=== PATIENT | male | born 1930 | race Caucasian/White ===

== ENCOUNTER 2018-03-22 09:54 | Emergency (ER) | payer MEDICARE ==
[~2018-03-22] VITALS: Ht 185.4 cm; Wt 88.9 kg
[~2018-03-22 09:54] MED LIST: ATORVASTATIN CA10 MG PO; CALCIUM PO; FISH OIL PO; MEVACOR20 MG PO; MULTIVITAMIN PO; VITAMIN B-121000 MCG PO; XARELTO PO
[2018-03-22 10:29] LABS: BASOPHILS % 0.4 % (0.0-1.0); EOSINOPHILS # (AUTO) 0.1 (0.0-0.4); EOSINOPHILS % 0.7 % (0.0-6.0); HEMATOCRIT 41.4 % (38.2-49.6); HEMOGLOBIN 14.3 g/dL (14.0-18.0); LYMPHOCYTES # (AUTO) 1.8 (1.0-3.2); LYMPHOCYTES % 24.1 % (18.0-39.1); MEAN CORPUSCULAR HEMOGLOBIN 32.8 pg (28-32); MEAN CORPUSCULAR HGB CONC 34.5 g/dL (31-35); MONOCYTES # (AUTO) 0.6 (0.2-0.8); MONOCYTES % 7.8 % (4.4-11.3); NEUTROPHILS # (AUTO) 4.8 (2.1-6.9); NEUTROPHILS % 66.4 % (38.7-80.0); PLATELET COUNT 242 x10e3/uL (140-360); RED BLOOD COUNT 4.36 x10e6/uL (4.3-5.7); RED CELL DISTRIBUTION WIDTH 13.2 % (11.7-14.4)
[2018-03-22 10:31] LABS: CLARITY,URINE CLOUDY (CLEAR); COLOR,URINE BROWN (YELLOW); LEUKOCYTE ESTERASE ,URINE TRACE (NEGATIVE)
[2018-03-22 10:32] LABS: BILIRUBIN,URINE 1+ (NEGATIVE); KETONES,URINE TRACE (NEGATIVE); NITRITE,URINE POSITIVE (NEGATIVE); PROTEIN,URINE DIPSTICK 3+ (NEGATIVE); URINE UROBILINOGEN 1 mg/dL (0.2 - 1)
[2018-03-22 10:41] LABS: INR 1.16; PROTHROMBIN TIME 13.9 seconds (11.9-14.5)
[2018-03-22 10:42] LABS: PARTIAL THROMBOPLASTIN TIME 30.8 seconds (23.8-35.5)
[2018-03-22 10:47] LABS: BACTERIA,URINE MODERATE /HPF; EPITHELIAL CELLS,URINE RARE /LPF; RBC,URINE >50 /HPF (0-5)
[2018-03-22 10:48] LABS: ALBUMIN 3.6 g/dL (3.5-5.0); ALBUMIN/GLOBULIN RATIO 0.9 (0.8-2.0); CALCIUM 10.2 mg/dL (8.4-10.2); CREATININE, SERUM 1.78 mg/dL (0.72-1.25)
[2018-03-22 13:13] VITALS: BP 153/85
== END 2018-03-22 13:00 | disposition home or self-care (01) ==
LOC: ER 09:54
DX: N30.91 Cystitis, unspecified with hematuria (principal); Z85.51 Personal history of malignant neoplasm of bladder; F17.290 Nicotine dependence, other tobacco product, uncomplicated
CPT/HCPCS: 36415; 80053; 81001; 85025; 85610; 85730; 87086; 87186; 93005; 99284

== ENCOUNTER 2018-03-28 10:27 | Inpatient (IN) | payer MEDICARE ==
[~2018-03-28] VITALS: Ht 185.4 cm; Wt 85.3 kg
--- OUTSIDE RECORDS SUMMARY | 2018-03-28 10:31 | XMS REPORT | Continuity of Care Document ---
Author Author [facility] Organization [facility] Address [address] [place] [address] Phone Unavailable Care Team Providers Care Cork Slabs Sawyer Name Role Phone KULWANT PABON PCP Insurance Providers Guarantor Torey Chen Address [address] [place] [id number] Email PTDECLINED Payer [employer] Medicare Complete Policy Number [id number] Subscriber's Name Torey Chen Tony Relationship 18 Self / Same As Patient Group Number [id number] Effective Date 14 Advance Directives Directive Response Recorded Date/Time Does the patient have an advance directive? No 07/05/15 2:03am If yes, is advance directive on file with [facility]? No 07/05/15 2:03am If not on file with [facility] will patient provide a copy? No 07/05/15 2:03am Do you have a Directive to Physician? No 03/22/18 10:43am Do you have a Medical Power of Chocolate Finisher? No 03/22/18 10:43am Do you have an out of hospital Do Not Resuscitate Order? No 03/22/18 10:43am Do you have any special needs we should be aware of? No 03/22/18 10:43am Do you have a support person here with you today? Yes 03/22/18 10:43am Did patient receive Notice of Privacy Practices? Yes 03/22/18 10:43am Did patient receive patient rights and responsibilities? Yes 03/22/18 10:43am Problems Medical Problem Onset Date Status Back pain, lumbosacral 07/05/2015 Acute Dizziness 07/05/2015 Acute Fall 07/05/2015 Acute Rhabdomyolysis 07/05/2015 Acute Medications Current Home Medications Medication Dose Units Route Directions Days Qty Instructions Start Date Atorvastatin Calcium 10 Mg Tablet 10 Mg Oral Daily 30 Tab Calcium Oral Daily Cyanocobalamin (Vitamin B-12) 1,000 Mcg Tab 1,000 Mcg Oral Daily 30 Tab Fish Oil Oral Daily Multivitamin Oral Daily Xarelto 15 Mg Oral Daily Past Home Medications Medication Directions Ordered Status Lovastatin (Mevacor*) 20 Mg Tablet, 20 Mg Oral Daily Discontinued Social History Social History Problem Response Recorded Date/Time Onset Date Status Hx Psychiatric Problems No 07/05/2015 2:03am Not Applicable Not Applicable Smoking Status Start Date Stop Date Never Smoker Hospital Discharge Instructions No hospital discharge instruction information available. Plan of Care Discharge Date 03/22/18 1:00pm Disposition HOME, SELF-CARE Condition at Discharge Stable Instructions/Education Provided Hematuria - Male Urinary Tract Infection - Men Prescriptions See Medication Section Referrals MAGDA ZARAGOZA MD Order Date: Call for an appointment Address: [address] [place] [id number] Additional Instructions/Education Call for follow up appointment to see Dr. Zaragoza. Take over the counter Motrin or Tylenol medication as needed for comfort. discussed at the bedside, drink fluids, rest and return to the emergency department for any fever, shortness of breath, chest pain, abdominal pain, trouble handling oral secretions or any new concerns. Functional Status No functional status information available. Allergies, Adverse Reactions, Alerts No known allergies. Immunizations No immunization information available. Vital Signs Acute Vital Signs Vital Response Date/Time Pulse Pulse Rate (adult) 61 bpm (60 - 90) 03/22/2018 1:13pm Respiratory Rate 16 bpm (12 - 24) 03/22/2018 1:13pm Blood Pressure 153/85 mm Hg 03/22/2018 1:13pm Height 6 ft 1 in 03/22/2018 10:18am Weight 196 lb 03/22/2018 10:18am Body Mass Index 25.9 kg/m^2 03/22/2018 10:18am Results Laboratory Results Test Name Result Units Flags Reference Collection Date/Time Result Date/ Time Comments White Blood Count 7.27 x10e3/uL 4.8-10.8 03/22/2018 10:03/22/2018 10:30am Red Blood Count 4.36 x10e6/uL 4.3-5.7 03/22/2018 10:03/22/2018 10: 30am Hemoglobin 14.3 g/dL 14.0-18.0 03/22/2018 10:03/22/2018 10:30am Hematocrit 41.4 % 38.2-49.6 03/22/2018 10:03/22/2018 10:30am Mean Corpuscular Volume 95.0 fL 81-99 03/22/2018 10:03/22/2018 10: 30am Mean Corpuscular Hemoglobin 32.8 pg H 28-32 03/22/2018 10:2017 10:30am Mean Corpuscular Hemoglobin Concent 34.5 g/dL 31-35 03/22/2018 10:03/22/2018 10:30am Red Cell Distribution Width 13.2 % 11.7-14.4 03/22/2018 10:2017 10:30am Platelet Count 242 x10e3/uL 140-360 03/22/2018 10:03/22/2018 10: 30am Neutrophils (%) (Auto) 66.4 % 38.7-80.0 03/22/2018 10:03/22/2018 10:30am Lymphocytes (%) (Auto) 24.1 % 18.0-39.1 03/22/2018 10:03/22/2018 10:30am Monocytes (%) (Auto) 7.8 % 4.4-11.3 03/22/2018 10:03/22/2018 10: 30am Eosinophils (%) (Auto) 0.7 % 0.0-6.0 03/22/2018 10:03/22/2018 10: 30am Basophils (%) (Auto) 0.4 % 0.0-1.0 03/22/2018 10:03/22/2018 10: 30am IM GRANULOCYTES % 0.6 % 0.0-1.0 03/22/2018 10:20am 03/22/2018 10:30am Neutrophils # (Auto) 4.8 2.1-6.9 03/22/2018 10:20am 03/22/2018 10: 30am Lymphocytes # (Auto) 1.8 1.0-3.2 03/22/2018 10:20am 03/22/2018 10: 30am Monocytes # (Auto) 0.6 0.2-0.8 03/22/2018 10:20am 03/22/2018 10:30am Eosinophils # (Auto) 0.1 0.0-0.4 03/22/2018 10:20am 03/22/2018 10: 30am Basophils # (Auto) 0.0 0.0-0.1 03/22/2018 10:20am 03/22/2018 10:30am Absolute Immature Granulocyte (auto 0.04 x10e3/uL 0-0.1 03/22/2018 10: 20am 03/22/2018 10:30am Prothrombin Time 13.9 seconds 11.9-14.5 03/22/2018 10:20am 03/22/2018 10:41am Prothromb Time International Ratio 1.16 03/22/2018 10:20am 2017 10:41am Oral Anticoagulant Therapy INR Values: 1. Low Intensity Therapy 1.5 - 2.0 2. Moderate Intensity Therapy 2.0 - 3.0 3. High Intensity Therapy(1) 2.5 - 3.5 4. High Intensity Therapy(2) 3.0 - 4.0 5. Panic Value INR > 5.0 Activated Partial Thromboplast Time 30.8 seconds 23.8-35.5 03/22/2018 10 :20am 03/22/2018 10:43am Urine Color BROWN H YELLOW 03/22/2018 10:20am 03/22/2018 10:32am Urine Clarity CLOUDY H CLEAR 03/22/2018 10:20am 03/22/2018 10:32am Urine Specific Anderson 1.020 1.010-1.025 03/22/2018 10:20am 2017 10:32am Urine pH 7 5 - 7 03/22/2018 10:20am 03/22/2018 10:32am Urine Leukocyte Esterase TRACE H NEGATIVE 03/22/2018 10:202017 10:32am Urine Nitrite POSITIVE H NEGATIVE 03/22/2018 10:03/22/2018 10: 32am Urine Protein 3+ H NEGATIVE 03/22/2018 10:03/22/2018 10:32am Urine Glucose (UA) NEGATIVE NEGATIVE 03/22/2018 10:2003/22/2018 10 :32am Urine Ketones TRACE H NEGATIVE 03/22/2018 10:2003/22/2018 10:32am Urine Urobilinogen 1 mg/dL 0.2 - 1 03/22/2018 10:2003/22/2018 10: 32am Urine Bilirubin 1+ H NEGATIVE 03/22/2018 10:2003/22/2018 10:32am Confirmatory test currently unavailable. False positive results may occur. Urine Blood 4+ H NEGATIVE 03/22/2018 10:03/22/2018 10:32am Urine WBC 6-10 /HPF H 0-5 03/22/2018 10:03/22/2018 10:47am Urine RBC >50 /HPF H 0-5 03/22/2018 10:2003/22/2018 10:47am Urine Bacteria MODERATE /HPF H NONE 03/22/2018 10:2003/22/2018 10: 47am Urine Epithelial Cells RARE /LPF NONE 03/22/2018 10:03/22/2018 10: 47am Sodium Level 137 mmol/L 136-145 03/22/2018 10:2003/22/2018 10:50am Potassium Level 4.0 mmol/L 3.5-5.1 03/22/2018 10:2003/22/2018 10: 50am Chloride Level 103 mmol/L 98-107 03/22/2018 10:2003/22/2018 10:50am Carbon Dioxide Level 25 mmol/L 22-03/22/2018 10:2003/22/2018 10: 50am Anion Gap 13.0 mmol/L 8-03/22/2018 10:2003/22/2018 10:50am Blood Urea Nitrogen 22 mg/dL 7-03/22/2018 10:20am 03/22/2018 10: 50am Creatinine 1.78 mg/dL H 0.72-1.25 03/22/2018 10:20am 03/22/2018 10:50am BUN/Creatinine Ratio 12 6-25 03/22/2018 10:20am 03/22/2018 10:50am Estimat Glomerular Filtration Rate 36 ML/MIN L 60- 03/22/2018 10:20 10:50am Ranges were taken from the National Kidney Disease Education Program and the National Kidney Foundation literature. Reference ranges: 60 or greater: Normal 16-59 (for 3 consecutive months): Chronic kidney disease 15 or less: Kidney failure Glucose Level 77 mg/dL 74-118 03/22/2018 10:20am 03/22/2018 10:50am Calcium Level 10.2 mg/dL # 8.4-10.2 03/22/2018 10:2003/22/2018 10: 50am Total Bilirubin 0.9 mg/dL 0.2-1.2 03/22/2018 10:20am 03/22/2018 10: 50am Aspartate Amino Transf (AST/SGOT) 28 IU/L 5-34 03/22/2018 10:20am 03/22 10:50am Alanine Aminotransferase (ALT/SGPT) 18 IU/L 0-55 03/22/2018 10:20am 10:50am Total Protein 7.5 g/dL 6.5-8.1 03/22/2018 10:2003/22/2018 10:50am Albumin 3.6 g/dL 3.5-5.0 03/22/2018 10:20am 03/22/2018 10:50am Globulin 3.9 g/dL H 2.3-3.5 03/22/2018 10:20am 03/22/2018 10:50am Albumin/Globulin Ratio 0.9 0.8-2.0 03/22/2018 10:20am 03/22/2018 10: 50am Alkaline Phosphatase 38 IU/L L 40-150 03/22/2018 10:20am 03/22/2018 10: 50am Procedures No procedure information available. Encounters Encounter Location Arrival/Admit Date Discharge/Depart Date Attending Provider Departed Emergency Room [facility] 03/22/18 9:54am 1:00pm DEANNA MONTES DE OCA MD
[2018-03-28 11:39] LABS: BASOPHILS % 0.3 % (0.0-1.0); EOSINOPHILS % 0.1 % (0.0-6.0); HEMATOCRIT 42.1 % (38.2-49.6); HEMOGLOBIN 14.7 g/dL (14.0-18.0); LYMPHOCYTES # (AUTO) 1.1 (1.0-3.2); LYMPHOCYTES % 12.9 % (18.0-39.1); MEAN CORPUSCULAR HGB CONC 34.9 g/dL (31-35); MEAN CORPUSCULAR VOLUME 94.6 fL (81-99); MONOCYTES # (AUTO) 0.5 (0.2-0.8); MONOCYTES % 5.1 % (4.4-11.3); NEUTROPHILS # (AUTO) 7.1 (2.1-6.9); NEUTROPHILS % 80.8 % (38.7-80.0); PLATELET COUNT 308 x10e3/uL (140-360); RED BLOOD COUNT 4.45 x10e6/uL (4.3-5.7); RED CELL DISTRIBUTION WIDTH 12.9 % (11.7-14.4)
[2018-03-28 11:44] LABS: INR 1.17; PARTIAL THROMBOPLASTIN TIME 27.9 seconds (23.8-35.5)
[2018-03-28 11:53] LABS: ALBUMIN 3.6 g/dL (3.5-5.0); ANION GAP 13.7 mmol/L (8-16); CALCIUM 10.3 mg/dL (8.4-10.2); CREATININE, SERUM 1.94 mg/dL (0.72-1.25); POTASSIUM 4.7 mmol/L (3.5-5.1)
[2018-03-28 12:00] LABS: B-TYPE NATRIURETIC PEPTIDE2 123.7 pg/mL (0-100)
[2018-03-28] MEDS ORDERED: MORPHINE SULFATE 2 MG/ML SYR IV STA (12:48)
[2018-03-28 13:12] LABS: BILIRUBIN,URINE 2+ (NEGATIVE); CLARITY,URINE CLOUDY (CLEAR); COLOR,URINE AMBER (YELLOW); KETONES,URINE NEGATIVE (NEGATIVE); LEUKOCYTE ESTERASE ,URINE TRACE (NEGATIVE); NITRITE,URINE POSITIVE (NEGATIVE); PROTEIN,URINE DIPSTICK 3+ (NEGATIVE); URINE UROBILINOGEN 0.2 mg/dL (0.2 - 1)
[2018-03-28 13:25] LABS: RBC,URINE >50 /HPF (0-5)
[2018-03-28 13:26] LABS: AMORPHOUS SEDIMENT,URINE RARE (FEW); BACTERIA,URINE MODERATE /HPF; EPITHELIAL CELLS,URINE RARE /LPF; MUCUS,URINE FEW (RARE)
--- NOTE | 2018-03-28 13:32 | Diagnostic Imaging Report ---
PROCEDURE: A single AP view of the chest. COMPARISON: Patients [facility], , CHEST SINGLE (PORTABLE), 07/08/2015, 23:31. INDICATIONS: BACK PAIN, NAUSEA FINDINGS: Lines/tubes: None. Lungs: The lungs are well inflated and clear. There is no evidence of pneumonia or pulmonary edema. Pleura: There is no pleural effusion or pneumothorax. Heart and mediastinum: The heart and the mediastinum are unremarkable. Pulmonary vasculature is normal. Bones: No acute bony abnormality. IMPRESSION: 1. No acute cardiopulmonary abnormalities. Tomasz Taveras M.D. Dictated by: Tomasz Taveras M.D. on 03/28/2018 at 13:35 Electronically approved by: Tomasz Taveras M.D. on 03/28/2018 at 13:35
--- NOTE | 2018-03-28 13:35 | Diagnostic Imaging Report ---
PROCEDURE:L-SPINE COMPLETE COMPARISON:CT, CT LUMBAR SPINE WO, 07/04/2015, 23:10. INDICATIONS:BACK PAIN, NAUSEA FINDINGS: 5 nonrib-bearing lumbar vertebrae. Multilevel degenerative disc changes in the lumbosacral spine, with presence of large bridging osteophytes predominantly at T12-L1, L1-L2, L2-L3, and L3-L4. Facet hypertrophy. L4-L5. No significant spondylolisthesis. Vertebral body heights are preserved. Bilateral oblique views show no spondylolysis. Nonobstructive gas pattern. Degenerative changes in bilateral sacroiliac joints. CONCLUSION: No acute abnormalities. Multilevel degenerative disc changes with facet hypertrophy. L4-L5 Tomasz Taveras M.D. Dictated by: Tomasz Taveras M.D. on 03/28/2018 at 13:38 Electronically approved by: Tomasz Taveras M.D. on 03/28/2018 at 13:38
[2018-03-28] MEDS ORDERED: CEFTRIAXONE SOD 1 GM VIAL IV SCH ×2 (14:30→15:00)
[2018-03-28] MEDS ORDERED: ONDANSETRON HCL INJ 2 MG/ML VIAL IV PRN (15:00)
[2018-03-28] MEDS ORDERED: MORPHINE SULFATE 2 MG/ML SYR IV PRN (15:00)
--- OUTSIDE RECORDS SUMMARY | 2018-03-28 15:10 | XMS REPORT ---
Author Author [facility] Address Unknown Phone Unavailable Care Team Providers Care Alternative Medicine Practitioner Name Role Phone ALYSSIA HANCOCK Unavailable Unavailable Problems This patient has no known problems. Allergies, Adverse Reactions, Alerts This patient has no known allergies or adverse reactions. Medications This patient has no known medications. Results Test Description Test Time Test Comments Text Results Atomic Results Result Comments CHEST SINGLE (NOT PORTABLE) [place] [address] Patient Name: BETSY CHEN MR #: [id number] : 1930 Age/Sex: 87/M Req #: [id number] Adm Physician: Ordered by: ALYSSIA HANCOCK MD Report #: [id number] Location: ER Room/Bed: Procedure: DX/CHEST SINGLE (NOT PORTABLE) Exam Date: 03/28/18 Exam Time: 1100 REPORT STATUS: Signed PROCEDURE: A single AP view of the chest. COMPARISON: [facility], , CHEST SINGLE (PORTABLE), 07/08/2015, 23:31. INDICATIONS: BACK PAIN, NAUSEA FINDINGS: Lines/tubes: None. Lungs: The lungs are well inflated and clear. There is no evidence of pneumonia or pulmonary edema. Pleura: There is no pleural effusion or pneumothorax. Heart and mediastinum: The heart and the mediastinum are unremarkable. Pulmonary vasculature is normal. Bones: No acute bony abnormality. IMPRESSION : 1. No acute cardiopulmonary abnormalities. Bailey Taveras M.D. Dictated by: Bailey Taveras M.D. on 03/28/2018 at 13:35 Electronically approved by: Bailey Taveras M.D. on 03/28/2018 at 13:35 Dictated By: BAILEY TAVERAS MD 1335 Transcribed By: TAYLOR on 03/28/18 1335 COPY TO: ALYSSIA HANCOCK MD LUMBAR, COMPLETE MIN 4VW [place] [address] Patient Name: BETSY CHEN MR #: [id number] : 1930 Age/Sex: 87/M Req #: [id number] Adm Physician: Ordered by: ALYSSIA HANCOCK MD Report #: [id number] Location: ER Room/Bed: Procedure: [id number] DX/SP LUMBAR, COMPLETE MIN 4VW Exam Date: 03/28/18 Exam Time: 1100 REPORT STATUS: Signed PROCEDURE: L-SPINE COMPLETE COMPARISON: CT, CT LUMBAR SPINE WO, 07/04/2015, 23: 10. INDICATIONS: BACK PAIN, NAUSEA FINDINGS: 5 nonrib- bearing lumbar vertebrae. Multilevel degenerative disc changes in the lumbosacral spine, with presence of large bridging osteophytes predominantly at T12-L1, L1-L2, L2-L3, and L3-L4. Facet hypertrophy. L4-L5. No significant spondylolisthesis. Vertebral body heights are preserved. Bilateral oblique views show no spondylolysis. Nonobstructive gas pattern. Degenerative changes in bilateral sacroiliac joints. CONCLUSION: No acute abnormalities. Multilevel degenerative disc changes with facet hypertrophy. L4-L5 Bailey Taveras M.D. Dictated by: Bailey Taveras M.D. on 03/28/2018 at 13:38 Electronically approved by: Bailey Taveras M.D. on 03/28/2018 at 13:38 Dictated By: BAILEY TAVERAS MD 1338 Transcribed By: TAYLOR on 03/28/18 1338 COPY TO: ALYSSIA HANCOCK MD
[2018-03-28] MEDS: SODIUM CHLORIDE 0.9% 1000ML 1,000 ML IV SCH (16:17)
[2018-03-28] MEDS ORDERED: ONDANSETRON HCL INJ 2 MG/ML VIAL ONE (18:25)
[2018-03-28] MEDS ORDERED: DEXAMETHASONE SOD PHOS INJ 4 MG/ML VIAL ONE (18:25)
[2018-03-28] MEDS ORDERED: DESFLURANE 240 ML BTL INH ONE (18:25)
[2018-03-28] MEDS ORDERED: PROPOFOL IV EMULSION 10 MG/ML 20 ML VIAL ONE (18:25)
[2018-03-28] MEDS ORDERED: LIDOCAINE HCL 2% LOCAL INJ 5 ML SDV VIAL INJ ONE (18:25)
[2018-03-28 18:52] VITALS: BP 144/65
[2018-03-28 19:30] VITALS: BP 146/67
[2018-03-28 20:00] VITALS: BP 146/67
[2018-03-29] VITALS (9 sets, daily range): BP systolic 107–155; BP diastolic 61–79
[2018-03-29] MEDS: SODIUM CHLORIDE 0.9% 1000ML 1,000 ML IV SCH ×2 (04:54→17:25)
[2018-03-29] MEDS: CEFTRIAXONE SOD 1 GM VIAL IV SCH (09:31)
--- NOTE | 2018-03-29 21:23 | Diagnostic Imaging Report ---
EXAM: ABDOMEN-1VIEW (KUB) DATE: 03/29/2018 5:42 PM Time stamp on exam: 1918 hours INDICATION: Abdominal distention COMPARISON: None FINDINGS: LINES/TUBES: None BOWEL PATTERN: No evidence for obstruction. Mild distention of the transverse colon. SOFT TISSUES: Multiple pelvic phleboliths are present. LUNG BASES: Bibasilar atelectasis. BONES: No acute findings. Degenerative changes of the visualized thoracolumbar spine and hip joints bilaterally. IMPRESSION: 1. Nonobstructive bowel gas pattern. 2. Bibasilar atelectasis Signed by: Dr. Alexis Boss M.D. on 03/29/2018 9:20 PM
[2018-03-30] VITALS (7 sets, daily range): BP systolic 105–132; BP diastolic 50–79
[2018-03-30 05:47] LABS: HEMATOCRIT 34.7 % (38.2-49.6); MEAN CORPUSCULAR HEMOGLOBIN 32.9 pg (28-32); MEAN CORPUSCULAR VOLUME 95.1 fL (81-99); RED BLOOD COUNT 3.65 x10e6/uL (4.3-5.7)
[2018-03-30 05:48] LABS: BASOPHILS % 0.2 % (0.0-1.0); EOSINOPHILS % 0.3 % (0.0-6.0); LYMPHOCYTES # (AUTO) 1.6 (1.0-3.2); LYMPHOCYTES % 14.3 % (18.0-39.1); MEAN CORPUSCULAR HGB CONC 34.6 g/dL (31-35); MONOCYTES # (AUTO) 0.7 (0.2-0.8); MONOCYTES % 6.3 % (4.4-11.3); NEUTROPHILS # (AUTO) 8.7 (2.1-6.9); NEUTROPHILS % 78.5 % (38.7-80.0); PLATELET COUNT 221 x10e3/uL (140-360); RED CELL DISTRIBUTION WIDTH 12.9 % (11.7-14.4)
[2018-03-30 06:28] LABS: ANION GAP 11.8 mmol/L (8-16); POTASSIUM 3.8 mmol/L (3.5-5.1)
[2018-03-30 06:29] LABS: CALCIUM 8.7 mg/dL (8.4-10.2); CREATININE, SERUM 2.03 mg/dL (0.72-1.25)
[2018-03-30] MEDS: SODIUM CHLORIDE 0.9% 1000ML 1,000 ML IV SCH ×2 (07:30→21:35)
[2018-03-30] MEDS: CYANOCOBALAMIN 1,000 MCG TAB PO SCH (09:38)
[2018-03-30] MEDS: CEFTRIAXONE SOD 1 GM VIAL IV SCH (09:38)
[2018-03-30 14:31] LABS: CREATININE,URINE RANDOM 193.18 mg/dL (63-166)
--- NOTE | 2018-03-30 14:52 | Consultation ---
DATE OF CONSULTATION: March 30, 2018 RENAL CONSULTATION HISTORY OF PRESENT ILLNESS: This is an 87-year-old gentleman who lives with his son, recently . Does not smoke or drink. Denies taking any pain medication. Came in because he was not feeling well. He was disoriented as well, he claims. Here he was found to have elevated white count of 11 with a hemoglobin of 12, had acute kidney injury with a serum creatinine of 2, potassium 3.8, bicarbonate 23. His liver function enzymes were normal. Calcium was elevated yesterday 10.3. BNP 123. Total protein 7.1. Globulin 3.5. Lipase 5.4. Had an x-ray of the abdomen and chest. Please see official reports. Urine culture is pending. He is currently awake, alert, oriented times 3, in no apparent distress. Denies any nausea, vomiting or shortness of breath. CURRENT MEDICATIONS: Normal saline 75 mL an hour. Atorvastatin 10 mg at bedtime. Ceftriaxone 1 gram IV daily. Ondansetron p.r.n. Morphine p.r.n. SOCIAL HISTORY: Patient does not smoke or drink. FAMILY HISTORY: Significant for hypertension. Urinalysis shows dipstick positive proteins and more than 50 RBC, 6-10 WBC. PHYSICAL EXAMINATION: GENERAL: Awake, alert, oriented times 3, lying supine in bed. In no apparent distress. VITALS: Blood pressure of 130/60, pulse rate 80. HEAD AND NECK: Cornea clear. Oral mucosa dry. Neck veins flat. LUNGS: Relatively clear. HEART: S1 and S2 audible. ABDOMEN: Otherwise soft, nontender. LOWER EXTREMITY EXAMINATION: Shows no edema. Urinalysis shows quite dark-colored urine but he is non-oliguric, though. IMPRESSION: Acute tubular necrosis. Has significant microscopic hematuria. Must rule out vasculitis, rapidly progressive glomerulonephritis . White count elevated, culture pending. Etiology of altered mental status unclear, currently stable. Appears relatively dehydrated, agree with IV fluids. Serology is ordered. Continue with IV fluids. Kidney ultrasound ordered. Please see orders. Job#: [id number] HANSA
--- NOTE | 2018-03-30 16:07 | Diagnostic Imaging Report ---
PROCEDURE:US RETROPERITONEAL ( KIDNEY ). COMPARISON:Patients [facility], MR, MRI SPINE LUMBAR WO, 07/05/2015, 13:21. INDICATIONS:ATN TECHNIQUE: Go-scale and color sonographic images of the bilateral kidneys and bladder where obtained in transverse and longitudinal planes. FINDINGS: RIGHT KIDNEY: 13.0 cm, cortex 1.1 cm Cysts: None Solid masses: None Stones: None Hydronephrosis: Mild hydronephrosis Echogenicity: Normal LEFT KIDNEY: 11.5 cm, cortex 1.7 cm Cysts: 1.5 x 1.2 x 1.2 cm cystic, anechoic lesion in the mid to inferior aspect. Solid masses: 4.4 x 2.6 x 3.6 cm hypoechoic, irregularly shaped area in the mid aspect Stones: None Hydronephrosis: None Echogenicity: Increased Bladder: Decompressed, with Banegas catheter in place Prostate: Not visualized. CONCLUSION: 1. Increased left renal cortical echogenicity, likely representing medical renal disease. 2. Mild right hydronephrosis. No stones are visualized. 3. Irregularly shaped 4.4 cm hypoechoic area in the mid aspect of the left kidney. This may represent focal area of marked scarring (as noted on prior MRI lumbar spine 07/05/2015), however, a focal mass is also considered. Tomasz Taveras M.D. Dictated by: Tomasz Taveras M.D. on 03/30/2018 at 16:10 Electronically approved by: Tomasz Taveras M.D. on 03/30/2018 at 16:10
[2018-03-30] MEDS: ATORVASTATIN 10 MG TAB PO SCH (21:36)
[2018-03-31] VITALS (7 sets, daily range): BP systolic 126–171; BP diastolic 64–91
[2018-03-31 05:57] LABS: ALBUMIN 2.4 g/dL (3.5-5.0); ALBUMIN/GLOBULIN RATIO 0.8 (0.8-2.0); ANION GAP 10.8 mmol/L (8-16); CALCIUM 8.5 mg/dL (8.4-10.2); CREATININE, SERUM 1.8 mg/dL (0.72-1.25); POTASSIUM 3.8 mmol/L (3.5-5.1)
[2018-03-31 06:15] LABS: HIV 1&2 AB SCREEN NON-REACTIVE (NONREACTIVE)
[2018-03-31] MEDS: CYANOCOBALAMIN 1,000 MCG TAB PO SCH (09:00)
[2018-03-31] MEDS: CEFTRIAXONE SOD 1 GM VIAL IV SCH (09:25)
[2018-03-31] MEDS: SODIUM CHLORIDE 0.9% 1000ML 1,000 ML IV SCH (11:49)
[2018-03-31] MEDS ORDERED: BELLADONNA/OPIUM 30 MG SUPP RC ONE (15:07)
[2018-03-31] MEDS ORDERED: IOPAMIDOL 610MG/1ML 300 MG/ML VIAL IV ONE (15:07)
[2018-03-31] MEDS ORDERED: FENTANYL CITRATE/PF 100MCG/2 ML INJ ONE (15:16)
[2018-03-31] MEDS ORDERED: METHYLENE BLUE 1% INJ 10 ML VIAL INJ ONE (17:18)
[2018-03-31] MEDS ORDERED: BELLADONNA/OPIUM 60 MG SUPP PR PRN (17:45)
[2018-03-31] MEDS ORDERED: BELLADONNA/OPIUM 30 MG SUPP RC PRN (18:00)
--- NOTE | 2018-03-31 20:27 | Diagnostic Imaging Report ---
EXAM: CT Abdomen and Pelvis WITHOUT contrast INDICATION: COMPARISON: None. TECHNIQUE: Abdomen and Pelvis was scanned utilizing a multidetector helical scanner without the use of IV contrast. Coronal and sagittal reformations were obtained. IV CONTRAST: None COMPLICATIONS: None RADIATION DOSE: Total DLP: 615 mGy*cm Estimated effective dose: (DLP x 0.015 x size factor) mSv CTDIvol has been reviewed. It is below the limits set by the Radiation Protocol Committee (RPC). FINDINGS: Abdomen: Lung Bases: Small left and moderate right pleural effusions with asymmetric to the right bibasilar opacities, incompletely evaluated given motion artifact and lack of IV contrast. Solid Organs: 17 mm hypodensity anteriorly in the left hepatic lobe, nonspecific. There is an 8 mm stone in the distal common duct, axial image 31. Probable layering sludge or gallstones present in the gallbladder. Adrenals, spleen unremarkable. Common duct dilated at head of pancreas 13 mm. Moderate right hydronephrosis and perinephric stranding. 22 mm exophytic lesion right kidney, incompletely evaluated given lack of IV contrast. Right ureter is dilated with surrounding stranding. No distinct calcified stone. Upper GI Tract: Decompressed stomach limits evaluation. Duodenal diverticulum. No small bowel obstructive changes. Vascularity: Mild aortic vascular calcifications with no aneurysm. Lymph Nodes: Evaluation limited given lack of IV contrast. No definite aortocaval or mesenteric adenopathy. Other: None. Pelvis: Bladder: Bladder decompressed with catheter. Wall thickening and surrounding inflammation. Other: Transverse diameter prostate 57 mm. 41 x 28 mm rounded lesion with peripheral calcifications right pelvis. 15 x 11 mm lymph node left pelvic sidewall. Colon: Moderate proximal stool. Bones: Degenerative changes spine. Degenerative changes SI joints and hips. No definite metastatic disease. IMPRESSION: 1. Decompressed urinary bladder limits evaluation. Wall thickening corresponding with provided history of malignancy. 41 x 28 mm right and 15 x 11 mm left pelvic lymph nodes, presumed metastatic. 2. Moderate right hydroureter and hydronephrosis presumably due to malignant obstruction of distal right ureter. Superimposed pyelonephritis not excluded. 3. 17 mm lesion left hepatic lobe, incompletely evaluated. Metastatic disease not excluded. 4. Choledocholithiasis with probable biliary sludge/cholelithiasis. Clinical and laboratory correlation for biliary obstruction recommended. 5. Small left and moderate right effusions with asymmetric to the right basilar airspace opacities, incompletely evaluated without IV contrast representing atelectasis and/or pneumonia. 6. Enlarged prostate. Clinical and laboratory correlation recommended. Signed by: Dr. Elías Buckner MD on 03/31/2018 8:23 PM
[2018-03-31] MEDS: ATORVASTATIN 10 MG TAB PO SCH (21:00)
[2018-04-01] VITALS (16 sets, daily range): BP systolic 129–178; BP diastolic 64–130
[2018-04-01 06:03] LABS: ALBUMIN 2.3 g/dL (3.5-5.0); ALBUMIN/GLOBULIN RATIO 0.7 (0.8-2.0); ANION GAP 13.6 mmol/L (8-16); CALCIUM 8.4 mg/dL (8.4-10.2); CREATININE, SERUM 1.58 mg/dL (0.72-1.25)
[2018-04-01 06:08] LABS: POTASSIUM 4.6 mmol/L (3.5-5.1)
[2018-04-01] MEDS: SODIUM CHLORIDE 0.9% 1000ML 1,000 ML IV SCH (06:25)
[2018-04-01] MEDS: CYANOCOBALAMIN 1,000 MCG TAB PO SCH (09:00)
[2018-04-01] MEDS: CEFTRIAXONE SOD 1 GM VIAL IV SCH (09:40)
[2018-04-01] MEDS ORDERED: LIDOCAINE HCL 2% LOCAL 20 ML VIAL ONE (11:24)
[2018-04-01] MEDS ORDERED: SODIUM CHLORIDE 0.9% 500ML 1,000 ML ONE (11:25)
[2018-04-01] MEDS ORDERED: MIDAZOLAM HCL 2 MG/2 ML VIAL ONE (11:28)
[2018-04-01] MEDS ORDERED: FENTANYL CITRATE/PF 100MCG/2 ML INJ ONE (11:28)
[2018-04-01] MEDS: AMLODIPINE BESYLATE 5 MG TAB PO SCH (16:06)
[2018-04-01] MEDS: ATORVASTATIN 10 MG TAB PO SCH (20:47)
[2018-04-02 00:46] VITALS: BP 113/62
[2018-04-02 06:04] VITALS: BP 137/77
[2018-04-02 06:16] LABS: ANION GAP 10.8 mmol/L (8-16); BLOOD UREA NITROGEN 23 mg/dL (7-26); BUN/CREATININE RATIO 21 (6-25); CALCIUM 8.6 mg/dL (8.4-10.2); CARBON DIOXIDE 24 mmol/L (22-29); CHLORIDE 104 mmol/L (98-107); EST GLOMERULAR FILTRATION RATE > 60 ML/MIN (60-); GLUCOSE 103 mg/dL (74-118); POTASSIUM 3.8 mmol/L (3.5-5.1); SODIUM 135 mmol/L (136-145)
[2018-04-02 08:00] VITALS: BP 152/88
[2018-04-02] MEDS: CYANOCOBALAMIN 1,000 MCG TAB PO SCH (08:15)
[2018-04-02] MEDS: CEFTRIAXONE SOD 1 GM VIAL IV SCH (08:15)
[2018-04-02] MEDS: SODIUM BICARBONATE 650 MG TAB PO SCH (08:15)
[2018-04-02] MEDS: AMLODIPINE BESYLATE 5 MG TAB PO SCH (08:15)
[2018-04-02 08:30] VITALS: BP 152/88
[2018-04-02 12:00] VITALS: BP 151/88
[2018-04-02] MEDS: SODIUM CHLORIDE 0.9% 1000ML 1,000 ML IV SCH (12:15)
[2018-04-02 21:29] VITALS: BP 166/77
[2018-04-02] MEDS: ATORVASTATIN 10 MG TAB PO SCH (21:37)
[2018-04-03 01:09] VITALS: BP 102/63
[2018-04-03 04:00] VITALS: BP 146/64
[2018-04-03 06:01] LABS: ANION GAP 12.6 mmol/L (8-16); BLOOD UREA NITROGEN 20 mg/dL (7-26); BUN/CREATININE RATIO 21 (6-25); CALCIUM 8.7 mg/dL (8.4-10.2); CARBON DIOXIDE 24 mmol/L (22-29); CHLORIDE 104 mmol/L (98-107); CREATININE, SERUM 0.94 mg/dL (0.72-1.25); EST GLOMERULAR FILTRATION RATE > 60 ML/MIN (60-); GLUCOSE 102 mg/dL (74-118); POTASSIUM 3.6 mmol/L (3.5-5.1); SODIUM 137 mmol/L (136-145)
[2018-04-03 07:56] VITALS: BP 142/79
[2018-04-03 09:00] VITALS: BP 142/79
[2018-04-03] MEDS: CEFTRIAXONE SOD 1 GM VIAL IV SCH (09:13)
[2018-04-03] MEDS: CYANOCOBALAMIN 1,000 MCG TAB PO SCH (09:13)
[2018-04-03] MEDS: SODIUM BICARBONATE 650 MG TAB PO SCH (09:13)
[2018-04-03] MEDS: AMLODIPINE BESYLATE 5 MG TAB PO SCH (09:13)
[2018-04-03 11:47] VITALS: BP 141/79
[2018-04-03] MEDS: SODIUM CHLORIDE 0.9% 1000ML 1,000 ML IV SCH (12:47)
[2018-04-03 16:01] VITALS: BP 163/85
[2018-05-08] MEDS ORDERED: FENOFIBRATE145 MG (07:12)
[2018-05-08] MEDS ORDERED: SODIUM BICARBO650 MG PO (07:12)
[2018-05-08] MEDS ORDERED: VITAMIN D400 UNIT PO (07:12)
[2018-05-11] MEDS ORDERED: VIT D PO (09:24)
--- NOTE | 2018-05-11 21:35 | Discharge Summary ---
CHIEF COMPLAINT: Generalized weakness and fatigue. FINAL DIAGNOSES 1. Bladder cancer. 2. Hematuria. 3. Status post ureteral stent. PROCEDURE: Cystoscopic retrograde pyelograms, transurethral resection of bladder tumors. Fluoroscopy guided right nephroureteral stent placement. [facility] 87-[facility] male with known history of atrial fib, bladder CA, brought to the ER with a 1-to-2-day history of generalized weakness, fatigue. Was recently diagnosed with UTI and has been on Cipro p.o. with no improvement. Has had fever and chills. No other complaints. Patient was reviewed and evaluated in the emergency room. Data was evaluated. Banegas was placed. Admission was made for treatment regarding findings of hematuria. UTI, weakness, CA of bladder, atrial fib. Will be undergoing urine studies. Begin IV antibiotics. Request urology followup. With admission, regarding the patient's kidney function findings, patient was being reviewed by Dr. Barragan, nephrology, and his impression was acute tubular necrosis. Significant microscopic hematuria. Must rule out vasculitis. Recommending progressive glomerulonephritis. Appears relatively dehydrated. Agree with rehydration. The patient was then being seen by Dr. Zaragoza regarding issues of recurrent bladder CA. With his evaluation, his impression was recurrent bladder CA, UTI, chronic renal insufficiency, hematuria. Patient on med surg floor, cardiac diet. Was on IV fluids. Was being given morphine sulfate for pain control. Started on 1 g of ceftriaxone daily IV. Laboratory studies were showing stable electrolytes. Kidney functions BUN 32 creatinine 1.94, glucose 107. CBC stable. Banegas is functioning. Still has evidence of hematuria. Patient's calcium has been running low elevation. However, as the patient was progressing, the hypercalcemia was improving. However, the hematuria was maintaining presence. Patient is set up for procedure per Dr. Zaragoza. His antibiotics were continuing. He is now being placed on B12 replenishment. He was beginning to receive small dosages of medications for his blood pressure management. He is slowly recovering from his surgical procedure. Arrangements were being made for discharge planning to SNF facility. Noted that he was feeling progressively better. He was cleared for discharge by urology. He was cleared for transfer, taken to [facility] 04[facility]2018, in stable condition. EKG shows atrial fib with a slow ventricular response. Right bundle branch block left anterior fascicular block, bifascicular block, left ventricular hypertrophy with QRS widening. Surgical procedures were carried out by Dr. Zaragoza. Bladder stones were removed. Bladder tumor was removed in sections. The 2nd procedure by interventional radiology, where a nephroureteral stent was placed on the right. Patient was then [facility] to [facility] on 04/03/[address] [facility] will continue on full code status. Patient remains incontinent with bladder. Does have a Banegas catheter on board. Patient has his own walker. I will be monitoring his recovery at that location. Will be evaluating his status routinely. Staff will be contacting me as needed. Dictated By: ROME Man Job#: [id number]
--- NOTE | 2018-05-17 10:02 | Diagnostic Imaging Report ---
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 Urologist was unable to find the ureteral orifice at cystoscopy. SEDATION: 1 mg of Versed and 50 mcg of Fentanyl. Patient was continuously monitored by the dedicated nurse. FINDINGS:Utilizing fluoroscopy guidance, puncture of the lower pole infundibula was accomplished with a 21 gauge skinny needle. A 0.018 inch wire was then advanced followed by an Accustick system. A 0.035 inch Glidewire was then advanced into the ureter. A 5 Ukrainian Kumpe catheter was utilized and probing of the distal ureter was accomplished. The wire was able to be placed into the bladder. A 0.035 inch Amplatz superstiff wire was then placed into the bladder. Serial dilatation was accomplished. An 8.5 Ukrainian 24 cm long nephroureteral stent was then placed. Patient tolerated the procedure well. Fluoroscopy time: 7.1 minutes. Total dose: 3510.1 cGycm2 CONCLUSION:Successful placement of a right nephroureteral stent. Kennedy Adkins D.O. Dictated by: Kennedy Adkins D.O. on 04/04/2018 at 8:21 Electronically approved by: Kennedy Adkins D.O. on 04/04/2018 at 8:21
--- NOTE | 2018-06-05 03:04 | Operative Report ---
DATE OF PROCEDURE: March 31, 2018 PREOPERATIVE DIAGNOSES: 1. Bladder cancer. 2. Gross hematuria. POSTOPERATIVE DIAGNOSES: 1. Gross hematuria. 2. Bladder stone. 3. Bladder cancer of the trigone and posterior bladder wall. OPERATIONS PERFORMED: 1. Cystourethroscopy with left ureteral catheterization and retrograde ureteropyelography (separate procedure performed for the hematuria). 2. Interpretation of retrograde ureteropyelography. 3. Supervision of fluoroscopy, no radiologist present. 4. Cystourethroscopy with cystolitholapaxy (separate procedure performed to get rid of the patient's bladder stone). 5. Cystourethroscopy with transurethral resection of large over 5 cm bladder cancer. ANESTHESIA: General. COMPLICATIONS: None. CLINICAL SUMMARY: Torey Chowdary is an 87-year-old man with bladder cancer. The patient failed to followup for approximate 1-1/2 years, and upon followup was found to have recurrence of bladder cancer. The patient also had gross hematuria, presented to the emergency room, was subsequently admitted. He is brought for evaluation and management of his bladder cancer. He is aware of the risks of bleeding, infection, injury to adjacent structures, need for additional procedures, and elected to proceed. OPERATIVE PROCEDURE IN DETAIL: Informed consent was verified. Torey Chowdary was properly identified, taken to the operating room, and placed on the cystoscopy table in supine position. Anesthesia was uneventfully begun. The patient was then carefully and gently repositioned in the dorsal lithotomy position with all pressure points well padded. His genitalia were prepared and draped in usual sterile fashion. The 22.5-Occitan cystoscope sheath with the visual obturator in place was atraumatically inserted into the patient's urethra. It was guided down the unremarkable urethra, through the normal sphincteric region, through the prostate bed, which was significant for BPH and into the patient's bladder where we identified a bladder stone. We also identified bladder tumor consistent with cancer on the right side of the trigone as well as in posterior bladder wall. The left ureteral orifice was visible. An 8-Occitan catheter was used to cannulate the left ureter, and retrograde ureteral pyelograms were performed. Interpretation of retrograde ureteropyelography: Contrast was instilled in retrograde fashion on the left hand side. There were no tumors, no stones, and no diverticula. J-hooking was noted. We identified the bladder stone. We utilized the graspers to crush the stone and then we extracted the stone fragments. The resectoscope was introduced. We then proceeded with performing transurethral resection of bladder cancer. We resected the bladder cancer of the trigone. We were unable to find the right ureteral orifice. We could not see anything excreting from that region. We also resected the posterior bladder wall tumor. We avoided injury to the left ureteral orifice. Not all cancer was removed despite significant resection of well over 5 cm diameter of tumor. Hemostasis was achieved with pinpoint electrocautery. The cystoscope was withdrawn. Banegas catheter was placed. The patient was then uneventfully reversed from anesthesia and taken to recovery room in stable condition. There were no complications to the procedure. He tolerated the procedure well. Plans will be to proceed with placement of a right percutaneous nephrostomy. Following this, we will send the patient to hopefully rehabilitate at a longterm facility in preparation for we hope to be the next step of management of this what we believe to be this invasive cancer. That next step in management will most likely be a radical cystectomy. Job#: [id number]
== END 2018-04-03 18:09 | DRG 653 ==
LOC: ER 10:27 → ERHOLD 15:08 → MED/SURG3 18:16 → ACU 04-03 11:44
PROC: 0T778ZZ Dilation of Left Ureter, Via Natural or Artificial Opening Endoscopic (ICD-10-PCS; 2018-03-31)
PROC: 0TCB8ZZ Extirpation of Matter from Bladder, Via Natural or Artificial Opening Endoscopic (ICD-10-PCS; 2018-03-31)
PROC: BT141ZZ Fluoroscopy of Kidneys, Ureters and Bladder using Low Osmolar Contrast (ICD-10-PCS; 2018-03-31)
PROC: 0TBB8ZX Excision of Bladder, Via Natural or Artificial Opening Endoscopic, Diagnostic (ICD-10-PCS; 2018-03-31 15:30)
PROC: 0T7 Urinary System, Dilation (ICD-10-PCS; principal; 2018-04-01)
DX: C67.8 Malignant neoplasm of overlapping sites of bladder (principal); N17.0 Acute kidney failure with tubular necrosis; N39.0 Urinary tract infection, site not specified; C79.89 Secondary malignant neoplasm of other specified sites; E87.1 Hypo-osmolality and hyponatremia; I12.9 Hypertensive chronic kidney disease with stage 1 through stage 4 chronic kidney disease, or unspecified chronic kidney disease; N18.3 Chronic kidney disease, stage 3 (moderate); E86.0 Dehydration; I48.0 Paroxysmal atrial fibrillation; Z79.01 Long term (current) use of anticoagulants; K21.9 Gastro-esophageal reflux disease without esophagitis; N40.0 Benign prostatic hyperplasia without lower urinary tract symptoms; N21.0 Calculus in bladder
CPT/HCPCS: 36415; 50430; 50432; 51700; 71045; 72110; 74018; 74176; 74420; 74470; 76770; 77002; 80048; 80053; 81001; 82550; 82553; 82570; 83516; 83605; 83690; 83880; 84156; 84165; 84484; 84550; 85025; 85597; 85610; 85613; 85730; 86021; 86039; 86160; 86225; 86235; 86255; 86256; 86335; 86376; 86431; 86803; 87086; 87390; 88300; 88305; 93005; 96361; 96375; 96376; 99284; G0433; G0435; J0696; J1100; J2001; J2250; J2270; J2405; J7030; J7040

== ENCOUNTER → 2018-05-08 | Day surgery (SDC) | payer MEDICARE ==
[~2018-05-08] MED LIST changes: +FENOFIBRATE145 MG; +FENTANYL CITRATE/PF 100MCG/2 ML INJ ONE; +LIDOCAINE HCL 2% LOCAL 20 ML VIAL ONE; +MIDAZOLAM HCL 2 MG/2 ML VIAL ONE; +SODIUM BICARBO650 MG PO; +SODIUM CHLORIDE 0.9% 500ML 500 ML ONE; +VIT D PO; +VITAMIN D400 UNIT PO
[2018-05-08 08:47] VITALS: BP 115/66
[2018-05-08 09:02] VITALS: BP 117/67
--- NOTE | 2018-05-19 09:50 | Diagnostic Imaging Report ---
Procedure: Right double-J ureteral stent placement Medications: Fentanyl 25 mcg intravenous. The patient's vital signs, including pulse oximetry, were continuously monitored by the interventional radiology nurse. Fluoroscopy time: 2.7 minutes. Dose area product: 810.5 cGycm2 Contrast used: Isovue-300 Procedure in detail: Informed consent for the procedure was obtained from the patient after discussion of risks and benefits. Contrast was injected into the indwelling nephroureteral stent on the right. 1% lidocaine was administered into the tract of the catheter. An Amplatz superstiff 0.035 " wire was then advanced into the bladder. An 8.5 Fr 24 cm long Amplatz double-J ureteral stent was placed over the wire. Proximal and distal pigtails were appropriately positioned. Contrast was injected through the introduction sheath confirming appropriate location of the pigtail within the renal pelvis prior to removal. The patient tolerated the procedure well without immediate complication. Impression: Successful removal of a right nephroureteral stent and placement of a double-J ureteral stent. Signed by: Dr. Kennedy Adkins DO on 05/11/2018 9:17 AM
--- NOTE | 2018-05-22 16:23 | Consultation ---
DATE OF CONSULTATION: May 22, 2018 REFERRING PHYSICIAN: Dr. Zaragoza I would like to thank Dr. Zaragoza for asking me to see Mr. Chowdary in consultation. REASON FOR CONSULTATION 1. Debilitation, status post radical cystoprostatectomy with resection. 2. Bladder cancer muscle invasion. 3. Stage 2C CKD. 4. AFib. HISTORY: Mr. 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 Had undergone previous radical cystoprostatectomy and ileal conduit placement by Dr. Zaragoza. The patient is really debilitated now, and had actually been in the snf unit after previous procedure. He is now being evaluated for inpatient rehab. The patient was seen by Dr. Owens for paroxysmal atrial fibrillation. Also, had some noted lymphedema. PAST MEDICAL HISTORY: Stage IV bladder cancer, hypertension, AFib, hyperlipidemia, stage 2 CKD. SURGERIES: Include left great toe amputation, radial cystoprostatectomy with lymph node dissection, bladder cancer resection several years ago. SOCIAL HISTORY: Lives with his son in a 1-story home. He was ambulatory, but occasionally used a walker or cane depending on the situation. FAMILY HISTORY: Noncontributory. ALLERGIES: PLEASE REFER TO ELECTRONIC MEDICAL RECORDS. REVIEW OF SYSTEMS GENERAL: Has no fevers or chills. HEENT: Eyes: Denies. Ears: Denies. Oral: Denies. NECK: Denies. CARDIAC: Denies. CHEST: Denies. GI: Denies. : Denies. LUNGS: Denies. White cell count of 7.2, hemoglobin 8.8, hematocrit 26.5, and platelets of 278,000. White cell count of 139, potassium 3.8, BUN 12, creatinine 0.75. Chest x-ray shows no significant interval change. PHYSICAL EXAMINATION GENERAL: The patient is awake, alert and pleasant. No apparent distress at this time. HEENT: Eyes are conjugant. Oropharynx midline. NECK: Supple. HEART: Regular. LUNGS: Diminished breath sounds. ABDOMEN: Abdominal incision looks great. He has a diverting urostomy. EXTREMITIES: Demonstrates full strength of upper extremities. Bilateral lower extremities 4 to 4+/5 strength bilaterally. Therapy [place], he is up and mobilizing with contact guard assist, but he says he still has problems with his balance. IMPRESSION 1. Debility following radical cystoprostatectomy with diverting urostomy secondary to bladder cancer with muscle invasion. 2. Stage 2 chronic kidney disease. 3. Chronic atrial fibrillation. 4. The patient with impaired mobility and even premorbidly. PLAN: Will check with the insurance for transfer to rehab. He has been in a skilled unit before with varying results. Continue supportive care. Precautions for falls. Discussed with case management and the patient. Will try to get insurance approval for transfer to rehab. Job#: [id number] [place]KA
== END | disposition home or self-care (01) ==
LOC: CATH LAB 06:30 → EDSTATUS 07:30
PROVIDERS: ATTEND Radiology Diagnostic Radiology
DX: C67.9 Malignant neoplasm of bladder, unspecified (principal); I12.9 Hypertensive chronic kidney disease with stage 1 through stage 4 chronic kidney disease, or unspecified chronic kidney disease; N18.2 Chronic kidney disease, stage 2 (mild); Z90.6 Acquired absence of other parts of urinary tract; Z90.79 Acquired absence of other genital organ(s); I48.0 Paroxysmal atrial fibrillation; R53.81 Other malaise; Z74.09 Other reduced mobility; Z79.02 Long term (current) use of antithrombotics/antiplatelets
CPT/HCPCS: 50693; C1769; C2625; J2001; J7040; 50430; 74425; J2250

== ENCOUNTER 2018-05-15 10:41 | Inpatient (IN) | payer MEDICARE ==
[2018-05-12 09:24] LABS: BASOPHILS % 0.4 % (0.0-1.0); EOSINOPHILS # (AUTO) 0.2 (0.0-0.4); EOSINOPHILS % 2.2 % (0.0-6.0); HEMATOCRIT 41.6 % (38.2-49.6); HEMOGLOBIN 14.1 g/dL (14.0-18.0); LYMPHOCYTES # (AUTO) 1.8 (1.0-3.2); LYMPHOCYTES % 26.9 % (18.0-39.1); MEAN CORPUSCULAR HGB CONC 33.9 g/dL (31-35); MEAN CORPUSCULAR VOLUME 94.3 fL (81-99); MONOCYTES # (AUTO) 0.7 (0.2-0.8); MONOCYTES % 10.3 % (4.4-11.3); NEUTROPHILS % 59.9 % (38.7-80.0); PLATELET COUNT 247 x10e3/uL (140-360); RED BLOOD COUNT 4.41 x10e6/uL (4.3-5.7); RED CELL DISTRIBUTION WIDTH 13.6 % (11.7-14.4)
[2018-05-12 09:43] LABS: ALBUMIN 3.5 g/dL (3.5-5.0); ALBUMIN/GLOBULIN RATIO 1.1 (0.8-2.0); ANION GAP 13.3 mmol/L (8-16); CALCIUM 10.2 mg/dL (8.4-10.2); CREATININE, SERUM 1.2 mg/dL (0.72-1.25); POTASSIUM 5.3 mmol/L (3.5-5.1)
[2018-05-15] VITALS (20 sets, daily range): BP systolic 110–128; BP diastolic 51–81
[~2018-05-15] VITALS: Ht 185.4 cm; Wt 95.3 kg
[~2018-05-15 10:41] MED LIST changes: -FENTANYL CITRATE/PF 100MCG/2 ML INJ ONE; -LIDOCAINE HCL 2% LOCAL 20 ML VIAL ONE; -MIDAZOLAM HCL 2 MG/2 ML VIAL ONE; -SODIUM CHLORIDE 0.9% 500ML 500 ML ONE
[2018-05-15] MEDS ORDERED: CEFAZOLIN SOD 1 GM VIAL ONE (11:33)
[2018-05-15] MEDS ORDERED: PIPER-TAZ 3.375 GM 50 ML ONE (11:33)
[2018-05-15] MEDS ORDERED: CLINDAMYCIN 300MG 50 ML IV ONE (11:33)
[2018-05-15 16:01] LABS: BASOPHILS % 0.5 % (0.0-1.0); EOSINOPHILS # (AUTO) 0.1 (0.0-0.4); EOSINOPHILS % 0.9 % (0.0-6.0); HEMATOCRIT 35.8 % (38.2-49.6); HEMOGLOBIN 11.9 g/dL (14.0-18.0); LYMPHOCYTES # (AUTO) 2.2 (1.0-3.2); MEAN CORPUSCULAR HEMOGLOBIN 32.1 pg (28-32); MEAN CORPUSCULAR HGB CONC 33.2 g/dL (31-35); MEAN CORPUSCULAR VOLUME 96.5 fL (81-99); MONOCYTES # (AUTO) 0.5 (0.2-0.8); NEUTROPHILS # (AUTO) 5.9 (2.1-6.9); NEUTROPHILS % 67.1 % (38.7-80.0); PLATELET COUNT 220 x10e3/uL (140-360); RED BLOOD COUNT 3.71 x10e6/uL (4.3-5.7); RED CELL DISTRIBUTION WIDTH 13.4 % (11.7-14.4)
[2018-05-15] MEDS ORDERED: FENTANYL CITRATE/PF 100MCG/2 ML INJ ONE ×2 (17:27→19:23)
[2018-05-15] MEDS ORDERED: NALOXONE HCL INJ 0.4 MG/ML AMP IV PRN (18:45)
[2018-05-15] MEDS ORDERED: DIPHENHYDRAMINE HCL INJ 50 MG/ML VIAL IM PRN (18:45)
[2018-05-15] MEDS ORDERED: ONDANSETRON HCL INJ 2 MG/ML VIAL IV PRN (18:45)
[2018-05-15] MEDS ORDERED: ACETAMINOPHEN 1000 MG/100 ML IV PRN ×2 (18:45→19:00)
[2018-05-15] MEDS ORDERED: MORPHINE SULFATE 1 MG/ML 30ML PCA IV PRN (18:45)
[2018-05-15] MEDS ORDERED: MORPHINE SULFATE 1 MG/ML 30ML PCA ONE (19:36)
--- NOTE | 2018-05-15 19:37 | Diagnostic Imaging Report ---
ADDENDUM #1 Addendum: Distal tip of enteric tube projects right above the hemidiaphragm likely at the level of the GE junction. Further advancement is recommended. Signed by: Dr. Tomasz Taveras M.D. on 05/16/2018 4:18 PM ORIGINAL REPORT Exam: KUB. Clinical History: Bladder cancer Comparison: 03/31/2018 Findings: Frontal view of the abdomen demonstrates a nonobstructive bowel gas pattern with moderate retained stool. Postsurgical changes are seen to the abdomen with numerous surgical clips, catheters and drains. No acute bone abnormality. Impression: Postsurgical change in the abdomen. Nonobstructive bowel gas pattern. Signed by: Dr. James Green M.D. on 05/15/2018 7:34 PM
--- NOTE | 2018-05-15 19:39 | Diagnostic Imaging Report ---
EXAMINATION: CHEST SINGLE (PORTABLE) INDICATION: Postop. Pneumothorax \S\R/O PTX \S\[id number] \S\1900 COMPARISON: None FINDINGS: TUBES and LINES: Enteric tube with distal tip not well seen below the diaphragm LUNGS: Lungs are well inflated. Lungs are clear. There is no evidence of pneumonia or pulmonary edema. PLEURA: Small right pleural effusion. No pneumothorax. HEART AND MEDIASTINUM: The cardiomediastinal silhouette is unremarkable. BONES AND SOFT TISSUES: No acute osseous lesion. Soft tissues are unremarkable. UPPER ABDOMEN: No free air under the diaphragm. IMPRESSION: Small right pleural effusion. No pneumothorax. Signed by: Dr. James Green M.D. on 05/15/2018 7:35 PM
[2018-05-15] MEDS: CLINDAMYCIN 300MG 50 ML IV SCH (22:00)
[2018-05-15] MEDS: SODIUM CHLORIDE 0.9% 250ML IRRIG IR SCH ×2 (22:07→23:49)
[2018-05-15] MEDS: SODIUM CHLORIDE 0.9% 1000ML 1,000 ML IV SCH (22:07)
[2018-05-15] MEDS: PIPERACILLIN/TAZO 2.25 GM 50 ML IV SCH (22:07)
[2018-05-16] VITALS (95 sets, daily range): BP systolic 87–128; BP diastolic 39–91
[2018-05-16] MEDS: SODIUM CHLORIDE 0.9% 250ML IRRIG IR SCH ×6 (02:48→22:26)
[2018-05-16] MEDS: CLINDAMYCIN 300MG 50 ML IV SCH ×3 (04:31→22:25)
[2018-05-16 04:58] LABS: BASOPHILS % 0.1 % (0.0-1.0); HEMATOCRIT 31.6 % (38.2-49.6); HEMOGLOBIN 10.5 g/dL (14.0-18.0); LYMPHOCYTES # (AUTO) 0.7 (1.0-3.2); LYMPHOCYTES % 7.3 % (18.0-39.1); MEAN CORPUSCULAR HEMOGLOBIN 31.5 pg (28-32); MEAN CORPUSCULAR HGB CONC 33.2 g/dL (31-35); MEAN CORPUSCULAR VOLUME 94.9 fL (81-99); MONOCYTES # (AUTO) 0.6 (0.2-0.8); MONOCYTES % 6.4 % (4.4-11.3); NEUTROPHILS # (AUTO) 8.5 (2.1-6.9); PLATELET COUNT 198 x10e3/uL (140-360); RED BLOOD COUNT 3.33 x10e6/uL (4.3-5.7); RED CELL DISTRIBUTION WIDTH 13.3 % (11.7-14.4)
[2018-05-16 05:14] LABS: ANION GAP 14.1 mmol/L (8-16); BLOOD UREA NITROGEN 14 mg/dL (7-26); BUN/CREATININE RATIO 14 (6-25); CALCIUM 7.7 mg/dL (8.4-10.2); CARBON DIOXIDE 21 mmol/L (22-29); CHLORIDE 108 mmol/L (98-107); CREATININE, SERUM 0.98 mg/dL (0.72-1.25); EST GLOMERULAR FILTRATION RATE > 60 ML/MIN (60-); GLUCOSE 141 mg/dL (74-118); POTASSIUM 4.1 mmol/L (3.5-5.1); SODIUM 139 mmol/L (136-145)
[2018-05-16] MEDS: PIPERACILLIN/TAZO 2.25 GM 50 ML IV SCH ×3 (06:18→22:25)
[2018-05-16 07:26] LABS: BAND NEUTROPHILS % (MANUAL) 1 %; LYMPHOCYTES % (MANUAL) 6 % (19-48); MONOCYTES % (MANUAL) 3 % (3.4-9.0); NEUTROPHILS % (MANUAL) 89 % (40-74)
[2018-05-16 07:32] LABS: ANISOCYTOSIS SLIGHT; HYPOCHROMASIA SLIGHT; PLATELET ESTIMATE ADEQUATE; PLATELET MORPHOLOGY COMMENT NORMAL; RBC MORPHOLOGY COMMENT NORMAL
[2018-05-16] MEDS ORDERED: CALCIUM CHLORIDE 13.6 MEQ in SODIUM CHLORIDE 0.9% 100 ML 100 ML IV ONE (09:15)
[2018-05-16] MEDS: SODIUM CHLORIDE 0.9% 1000ML 1,000 ML IV SCH ×2 (09:30→17:16)
[2018-05-16] MEDS ORDERED: NEOSTIGMINE 5 MG/5ML SYR ONE (20:12)
[2018-05-16] MEDS ORDERED: LIDOCAINE HCL 2% LOCAL INJ 5 ML SDV VIAL INJ ONE (20:12)
[2018-05-16] MEDS ORDERED: SEVOFLURANE INHAL SOLN 250 ML PEN BTL ONE (20:12)
[2018-05-16] MEDS ORDERED: ONDANSETRON HCL INJ 2 MG/ML VIAL ONE (20:12)
[2018-05-16] MEDS ORDERED: GLYCOPYRROLATE INJ 1MG/ 5 ML SYR ONE (20:12)
[2018-05-16] MEDS ORDERED: ROCURONIUM BROMIDE 10 MG/ML 5ML VIAL ONE (20:12)
[2018-05-16] MEDS ORDERED: DEXAMETHASONE SOD PHOS INJ 4 MG/ML VIAL ONE (20:12)
[2018-05-16] MEDS ORDERED: PROPOFOL IV EMULSION 10 MG/ML 20 ML VIAL ONE (20:12)
[2018-05-16] MEDS ORDERED: KETOROLAC TROMETHAMINE 30 MG/ML VIAL ONE (20:12)
[2018-05-17] VITALS (41 sets, daily range): BP systolic 91–128; BP diastolic 37–76
[2018-05-17] MEDS: SODIUM CHLORIDE 0.9% 250ML IRRIG IR SCH ×4 (02:45→14:45)
[2018-05-17] MEDS: SODIUM CHLORIDE 0.9% 1000ML 1,000 ML IV SCH ×3 (03:22→23:00)
[2018-05-17 04:42] LABS: BASOPHILS % 0.2 % (0.0-1.0); EOSINOPHILS % 0.1 % (0.0-6.0); HEMOGLOBIN 9.1 g/dL (14.0-18.0); LYMPHOCYTES # (AUTO) 0.9 (1.0-3.2); LYMPHOCYTES % 11.2 % (18.0-39.1); MEAN CORPUSCULAR HEMOGLOBIN 31.7 pg (28-32); MEAN CORPUSCULAR HGB CONC 32.5 g/dL (31-35); MEAN CORPUSCULAR VOLUME 97.6 fL (81-99); MONOCYTES # (AUTO) 0.7 (0.2-0.8); NEUTROPHILS # (AUTO) 6.6 (2.1-6.9); NEUTROPHILS % 80.1 % (38.7-80.0); PLATELET COUNT 182 x10e3/uL (140-360); RED BLOOD COUNT 2.87 x10e6/uL (4.3-5.7)
[2018-05-17 05:05] LABS: ALANINE AMINOTRANSFERASE 11 IU/L (0-55); ALBUMIN 2.2 g/dL (3.5-5.0); ALKALINE PHOSPHATASE 35 IU/L (40-150); BLOOD UREA NITROGEN 13 mg/dL (7-26); BUN/CREATININE RATIO 13 (6-25); CALCIUM 7.9 mg/dL (8.4-10.2); CARBON DIOXIDE 21 mmol/L (22-29); CHLORIDE 113 mmol/L (98-107); EST GLOMERULAR FILTRATION RATE > 60 ML/MIN (60-); GLUCOSE 89 mg/dL (74-118); SODIUM 141 mmol/L (136-145)
[2018-05-17] MEDS: PIPERACILLIN/TAZO 2.25 GM 50 ML IV SCH ×3 (05:32→23:00)
[2018-05-17] MEDS: CLINDAMYCIN 300MG 50 ML IV SCH ×3 (05:32→22:15)
[2018-05-17] MEDS ORDERED: MORPHINE SULFATE 1 MG/ML 30ML PCA IV PRN (12:15)
--- NOTE | 2018-05-17 13:59 | History and Physical ---
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 Yesterday patient underwent successful radical cystoprostatectomy and ileal conduit placement. The surgery was performed by his urology, namely Dr. Freddy Zaragoza. The patient states his pain is currently well controlled. Blood work today revealed potassium 4.1. Patient's BUN and creatinine are 14 and 0.98 respectively. BUN and creatinine on May 12, 2018, were 17 and 1.2 respectively. The patient's hemoglobin today is 10.5 g/dl. Prior to surgery, on May 12, 2018, hemoglobin was 14.1 g/dl. The patient denies any nausea and vomiting. REVIEW OF SYSTEMS GENERAL: Weight has been stable. No fever or chills. HEENT: No headaches. No visual changes. CARDIOVASCULAR/RESPIRATORY: No chest pain, no shortness of breath, no cough. GI: Patient denies any abdominal pain at this time. No nausea, vomiting. : Patient has the ileal conduit in place. NEUROMUSCULAR: Denies any limb weakness or numbness. PAST MEDICAL HISTORY 1. Stage IV bladder cancer (muscle invasion). 2. Hypertensive heart disease. 3. Chronic atrial fibrillation. 4. Hyperlipidemia. 5. Stage 2 chronic kidney disease. NO KNOWN DRUG ALLERGIES. MEDICATIONS 1. Atorvastatin 10 mg nightly. 2. Vitamin B12, 1000 mcg daily. 3. Fenofibrate 145 mg daily. 4. Sodium bicarbonate 650 mg daily. 5. Calcium carbonate 600 mg daily. 6. Penn-3 fish oil 1200 mg daily. 7. Multivitamins daily. 8. Vitamin D3, 400 units daily. SURGICAL HISTORY 1. 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 2. Radical cystoprostatectomy with lymph node dissection and ileal conduit placement on May 15, 2018. 3. Bladder cancer resection several years ago. SOCIAL HISTORY: This man is but lives [place]. No history of alcohol or tobacco use. He has adult daughter who is involved in his healthcare needs. FAMILY HISTORY: Noncontributory. PHYSICAL EXAMINATION GENERAL: He is awake, alert and fully oriented. He is pleasant and cooperative with exam. He is sedated currently with intravenous morphine. His adult daughter is at bedside. VITAL SIGNS: Height 6 feet 1 inch, weight is 210 pounds, BMI 27. Blood pressure 104/44, pulse 54, respiratory rate is 18, oxygen saturation is 96% on room air. INTEGUMENT: Skin is warm and dry. No pallor, jaundice, diaphoresis. HEENT: Anicteric sclerae with moist mucous membranes. Patient has poor dentition. Patient has a nasogastric tube in place. NECK: Supple. CARDIOVASCULAR: Distant heart sounds. Regular rate and rhythm with an S3 gallop. LUNGS: No rales, no rhonchi, no wheezes. ABDOMEN: Distended. EXTREMITIES: No edema or deformity. Patient is currently wearing sequential compression devices on his bilateral lower legs. NEUROLOGICALLY: Intact. He moves all 4 extremities freely. DIAGNOSES 1. Status post radical cystoprostatectomy with lymph node resection and ileal conduit placement on May 15, 2018. 2. Bladder cancer with muscle invasion. 3. Stage 2 chronic kidney disease. 4. Chronic atrial fibrillation. 5. Acute posthemorrhagic anemia. PLAN 1. Follow hemoglobin and hematocrit. 2. Follow BUN and creatinine. 3. Monitor and control blood pressure. 4. Pain control. 5. Mobilize with physical therapy. I spent 75 minutes in the care of this intensive care unit patient. Job#: [id number] EV DON
--- NOTE | 2018-05-17 14:04 | Consultation ---
DATE OF CONSULTATION: May 16, 2018 CARDIOLOGY CONSULTATION REASON FOR CONSULTATION: Paroxysmal atrial fibrillation. CHIEF COMPLAINT: My stomach hurts. HISTORY OF PRESENT ILLNESS: The patient is an 87-year-old male who is well known to our practice. He is a patient of Dr. Haynes with paroxysmal atrial fibrillation who had hematuria on anticoagulation and was diagnosed with bladder cancer and just underwent urgent cystoprostatectomy yesterday and now recovering from the surgery in the ICU. We are consulted to manage his cardiovascular issues during the hospitalization. REVIEW OF SYSTEMS: Patient complains about some abdominal pain. Complains about the nasogastric tube in his nose. Otherwise denies any chest pain, shortness of breath, palpitations, syncope or presyncope. A 10-point review of systems is otherwise negative. PAST MEDICAL HISTORY: 1. Paroxysmal atrial fibrillation previously on anticoagulation; however, this has been stopped due to hematuria, now just underwent cystoprostatectomy for bladder cancer. 2. Hyperlipidemia on statin, previously complicated by a rhabdomyolysis requiring hospitalization. Statins have since been started at a low dose and he has been able to tolerate this for several years. 3. Hypertension. 4. Bladder cancer, status post surgical resection. 5. Lymphedema. SOCIAL HISTORY: The patient currently does not smoke, drink or use illegal drugs. FAMILY HISTORY: The patient does not have any family history of early coronary artery disease. PHYSICAL EXAMINATION: VITALS: Temperature 98.0, pulse 78, blood pressure 110/57, satting 100% on nasal cannula. EYES: Conjunctivae clear. EARS, NOSE, MOUTH AND THROAT: Patient has a nasogastric tube in place. No pallor or bleeding. NECK: No jugular venous distention. MUSCULOSKELETAL: Generalized weakness. No atrophy or abnormal movements. EXTREMITIES: No clubbing or cyanosis. SKIN: No venostasis changes or ulcers. GENERAL: Elderly white man, well developed and well nourished. CARDIOVASCULAR: PMI is nondisplaced. Regular S1 and S2. No murmur, rubs or gallops. Normal carotid pulses. Palpable femoral pulses. Palpable pedal pulses. No peripheral edema or varicosities. RESPIRATORY: No respiratory distress. Lungs are clear to auscultation bilaterally. ABDOMEN: Soft. Mild diffuse tenderness in the lower quadrants. Dressing in place. No masses. No hepatosplenomegaly. NEURO AND PSYCH: Alert and oriented to person and place but not time. Has a normal affect. MEDICATIONS: Currently not on any cardiovascular medications. LABORATORY DATA: Reviewed. IMAGING: All imaging data reviewed. TELEMETRY: Patient is an sinus rhythm with heart rates in the 60s and 70s. ASSESSMENT AND PLAN 1. Paroxysmal atrial fibrillation. 2. Lymphedema. 3. Bladder cancer status post cystoprostatectomy on 05/15/2018. PLAN: Remains in sinus rhythm with heart rates in the 60s and 70s. He is hemodynamically stable, and given recent surgery, no anticoagulation. Once he recovers from surgery and is acceptable to anticoagulate him from a surgical point of view, will restart his Xarelto 15 mg q.p.m. for stroke prevention for atrial fibrillation. Will continue to follow. Thank you for this consult. Job#: [id number] NICA
--- NOTE | 2018-05-17 19:59 | Progress Note ---
DATE: May 17, 2018 SUBJECTIVE: No major events overnight. NG tube removed. Complaining about feeling thirsty. However, said that his post surgical pain is getting better. No nausea or vomiting. No chest pain or shortness of breath. REVIEW OF SYSTEMS: As above, otherwise negative. OBJECTIVE VITAL SIGNS: Heart rate 81, respiratory rate 20, blood pressure 124/58, satting 96% on room air. GENERAL: An elderly white man who is well developed and well nourished. CARDIOVASCULAR: PMI nondisplaced. Regular S1 and S2. No murmurs, rubs or gallops. Normal carotid pulses. Palpable femoral pulses. Palpable pedal pulses. No peripheral edema or varicosities. RESPIRATORY: No respiratory distress. LUNGS: Clear to auscultation bilaterally. ABDOMEN: Soft. Tender around the surgical site with dressing in place. NEURO AND PSYCHIATRIC: Alert and oriented to person and place but not time. Has a normal affect. MEDICATIONS: Reviewed. LABORATORY DATA: Reviewed. IMAGING: All imaging data reviewed. TELEMETRY DATA: Reviewed. Remains in sinus rhythm. Heart rate in the 60s and 70s. ASSESSMENT 1. Paroxysmal atrial fibrillation, not on anticoagulation due to recurrent hematuria. 2. Lymphedema. 3. Bladder cancer, status post cystoprostatectomy on May 15, 2018. PLAN: The patient remains in normal sinus rhythm and hemodynamically stable post surgery. Continue to hold anticoagulation given recent surgery. Once he recovers from surgery and is acceptable to anticoagulate him from post surgical standpoint, plan to restart Xarelto 15 mg q.p.m. for stroke prevention for atrial fibrillation. Now that he has had a cystectomy, he should not have any further issues with hematuria. Will continue to follow. Thank you for this consult. Job#: [id number]
[2018-05-18] VITALS (8 sets, daily range): BP systolic 127–155; BP diastolic 58–67
[2018-05-18 04:35] LABS: BASOPHILS % 0.3 % (0.0-1.0); EOSINOPHILS # (AUTO) 0.1 (0.0-0.4); HEMATOCRIT 26.3 % (38.2-49.6); HEMOGLOBIN 8.6 g/dL (14.0-18.0); LYMPHOCYTES # (AUTO) 1.2 (1.0-3.2); LYMPHOCYTES % 16.3 % (18.0-39.1); MEAN CORPUSCULAR HEMOGLOBIN 31.4 pg (28-32); MEAN CORPUSCULAR HGB CONC 32.7 g/dL (31-35); MONOCYTES # (AUTO) 0.5 (0.2-0.8); MONOCYTES % 6.8 % (4.4-11.3); NEUTROPHILS # (AUTO) 5.3 (2.1-6.9); NEUTROPHILS % 75.2 % (38.7-80.0); PLATELET COUNT 179 x10e3/uL (140-360); RED BLOOD COUNT 2.74 x10e6/uL (4.3-5.7); RED CELL DISTRIBUTION WIDTH 14.1 % (11.7-14.4)
[2018-05-18 05:05] LABS: ALANINE AMINOTRANSFERASE 12 IU/L (0-55); ALBUMIN 2.1 g/dL (3.5-5.0); ALBUMIN/GLOBULIN RATIO 0.8 (0.8-2.0); ALKALINE PHOSPHATASE 39 IU/L (40-150); ANION GAP 12.6 mmol/L (8-16); BLOOD UREA NITROGEN 11 mg/dL (7-26); BUN/CREATININE RATIO 14 (6-25); CALCIUM 8.1 mg/dL (8.4-10.2); CARBON DIOXIDE 23 mmol/L (22-29); CHLORIDE 113 mmol/L (98-107); CREATININE, SERUM 0.79 mg/dL (0.72-1.25); EST GLOMERULAR FILTRATION RATE > 60 ML/MIN (60-); GLUCOSE 81 mg/dL (74-118); POTASSIUM 3.6 mmol/L (3.5-5.1); SODIUM 145 mmol/L (136-145)
[2018-05-18] MEDS: CLINDAMYCIN 300MG 50 ML IV SCH ×3 (06:15→21:15)
[2018-05-18] MEDS: PIPERACILLIN/TAZO 2.25 GM 50 ML IV SCH ×3 (06:40→22:34)
[2018-05-18] MEDS ORDERED: FUROSEMIDE INJ 10 MG/ML 4 ML VIAL IV ONE (11:50)
[2018-05-18] MEDS ORDERED: FUROSEMIDE INJ 10 MG/ML 4 ML VIAL IV SCH (12:00)
--- NOTE | 2018-05-18 14:27 | Progress Note ---
DATE: May 18, 2018 CARDIOLOGY PROGRESS NOTE SUBJECTIVE: Patient moved out of the ICU yesterday. Now eating ice chips without any trouble, feeling better overall. Continues to be on IV opioids for pain control postoperatively. REVIEW OF SYSTEMS: As above, otherwise review of systems was negative. OBJECTIVE VITAL SIGNS: Temperature 98.6, heart rate 75, respiratory rate 18, blood pressure 132/58, saturations 96% on room air. GENERAL: Elderly white male, well developed. CARDIOVASCULAR: Irregular rate and rhythm. Normal S1, S2. No murmurs, rubs, or gallops. Normal carotid pulses. Palpable pedal pulses. ABDOMEN: Soft, mildly tender around the surgical site, nondistended. Positive bowel sounds in all four quadrants. LUNGS: No respiratory distress. Clear to auscultation bilaterally. NEURO/PSYCH: Patient is alert and oriented to person and place, not time. Normal affect. LABORATORY DATA: Reviewed. IMAGING DATA: Reviewed. TELEMETRY DATA: Reviewed. Shows rate-controlled atrial fibrillation. ASSESSMENT 1. Paroxysmal atrial fibrillation, not on anticoagulation due to recurrent hematuria. 2. Lymphedema. 3. Bladder cancer status post cystoprostatectomy on May 15, 2018. PLAN: Patient in rate-controlled atrial fibrillation, hemodynamically stable currently. Continue to hold anticoagulation given recent surgery and subsequent anemia. Once he recovers from surgery and his hemoglobin recovers, will discuss restarting him on Xarelto as an outpatient. Patient is also interested in discussing option of the Watchman device and can discuss this further with him as an outpatient. Continue his current cardiovascular medicines. We will continue to follow. Job#: [id number] JERMAIN
[2018-05-18] MEDS ORDERED: SODIUM CHLORIDE 0.45% 1,000 ML IV SCH (16:45)
[2018-05-19] VITALS (7 sets, daily range): BP systolic 108–162; BP diastolic 56–72
[2018-05-19 04:28] LABS: BASOPHILS % 0.3 % (0.0-1.0); EOSINOPHILS # (AUTO) 0.1 (0.0-0.4); EOSINOPHILS % 1.4 % (0.0-6.0); HEMATOCRIT 26.3 % (38.2-49.6); HEMOGLOBIN 8.9 g/dL (14.0-18.0); LYMPHOCYTES % 13.7 % (18.0-39.1); MEAN CORPUSCULAR HEMOGLOBIN 31.8 pg (28-32); MEAN CORPUSCULAR HGB CONC 33.8 g/dL (31-35); MEAN CORPUSCULAR VOLUME 93.9 fL (81-99); MONOCYTES # (AUTO) 0.6 (0.2-0.8); NEUTROPHILS # (AUTO) 5.6 (2.1-6.9); NEUTROPHILS % 76.2 % (38.7-80.0); PLATELET COUNT 223 x10e3/uL (140-360); RED CELL DISTRIBUTION WIDTH 13.8 % (11.7-14.4)
[2018-05-19 04:51] LABS: ALANINE AMINOTRANSFERASE 15 IU/L (0-55); ALBUMIN 2.1 g/dL (3.5-5.0); ALBUMIN/GLOBULIN RATIO 0.8 (0.8-2.0); ALKALINE PHOSPHATASE 44 IU/L (40-150); BLOOD UREA NITROGEN 12 mg/dL (7-26); BUN/CREATININE RATIO 14 (6-25); CALCIUM 8.3 mg/dL (8.4-10.2); CARBON DIOXIDE 25 mmol/L (22-29); CHLORIDE 106 mmol/L (98-107); CREATININE, SERUM 0.83 mg/dL (0.72-1.25); EST GLOMERULAR FILTRATION RATE > 60 ML/MIN (60-); GLUCOSE 99 mg/dL (74-118); SODIUM 145 mmol/L (136-145)
[2018-05-19] MEDS: PIPERACILLIN/TAZO 2.25 GM 50 ML IV SCH ×3 (05:28→21:44)
[2018-05-19] MEDS: CLINDAMYCIN 300MG 50 ML IV SCH ×3 (06:30→20:59)
[2018-05-19] MEDS ORDERED: POTASSIUM CHLORIDE 20 MEQ TAB CR PO NR ×2 (08:00→11:00)
[2018-05-19] MEDS ORDERED: ACETAMINOPHEN/CODEINE 300MG - 30MG TAB PO PRN (10:30)
[2018-05-19] MEDS ORDERED: BISACODYL 10 MG SUPP PR NR ×2 (10:30→13:45)
--- NOTE | 2018-05-19 15:50 | Progress Note ---
DATE: May 19, 2018 CARDIOLOGY PROGRESS NOTE SUBJECTIVE: No major events overnight. The patient is up in a chair today having liquid diet without any issues. No chest pain, shortness of breath. REVIEW OF SYSTEMS: As above, otherwise negative. OBJECTIVE VITAL SIGNS: Temperature 96.5, pulse 78, respiratory rate 20, blood pressure 108/56, saturations 99% on room air. GENERAL: Elderly white male in no acute distress. CARDIOVASCULAR: PMI nondisplaced. Irregular. S1 and S2. No murmurs, rubs or gallops. Carotid pulses palpable. Pedal pulses palpable. MEDICATIONS: Reviewed. LABORATORY DATA: Reviewed. IMAGING DATA: Reviewed. ASSESSMENT 1. Paroxysmal atrial fibrillation, not on anticoagulation due to recurrent hematuria. 2. Lymphedema. 3. Bladder cancer status post cystoprostatectomy on May 15, 2018. PLAN: Remains rate controlled without any medications in atrial fibrillation, hemodynamically stable. Continue to hold anticoagulation given recent surgery and subsequent anemia. The patient is overall recovering very well from his surgery without any significant cardiovascular issues. The patient is okay to be discharged from a cardiovascular standpoint. The patient to follow up with us in the office for further discussion regarding long-term anticoagulation for his chronic atrial fibrillation. Thank you for this consult. We will continue to follow. Job#: [id number]
[2018-05-19] MEDS: DOCUSATE SODIUM 100 MG CAP PO SCH (17:01)
[2018-05-19] MEDS ORDERED: TEMAZEPAM 15 MG CAP PO PRN (23:30)
[2018-05-19] MEDS ORDERED: CLONIDINE HCL 0.1 MG TAB PO PRN (23:30)
[2018-05-20] VITALS (8 sets, daily range): BP systolic 121–170; BP diastolic 55–77
[2018-05-20 06:07] LABS: BASOPHILS % 0.4 % (0.0-1.0); EOSINOPHILS # (AUTO) 0.1 (0.0-0.4); EOSINOPHILS % 0.6 % (0.0-6.0); HEMATOCRIT 27.7 % (38.2-49.6); HEMOGLOBIN 9.2 g/dL (14.0-18.0); LYMPHOCYTES # (AUTO) 0.9 (1.0-3.2); LYMPHOCYTES % 10.3 % (18.0-39.1); MEAN CORPUSCULAR HEMOGLOBIN 31.3 pg (28-32); MEAN CORPUSCULAR HGB CONC 33.2 g/dL (31-35); MEAN CORPUSCULAR VOLUME 94.2 fL (81-99); MONOCYTES # (AUTO) 0.5 (0.2-0.8); MONOCYTES % 5.4 % (4.4-11.3); NEUTROPHILS % 82.8 % (38.7-80.0); PLATELET COUNT 235 x10e3/uL (140-360); RED BLOOD COUNT 2.94 x10e6/uL (4.3-5.7); RED CELL DISTRIBUTION WIDTH 13.8 % (11.7-14.4)
[2018-05-20] MEDS: PIPERACILLIN/TAZO 2.25 GM 50 ML IV SCH (06:27)
[2018-05-20 06:30] LABS: ALANINE AMINOTRANSFERASE 17 IU/L (0-55); ALBUMIN/GLOBULIN RATIO 0.7 (0.8-2.0); ALKALINE PHOSPHATASE 46 IU/L (40-150); ANION GAP 12.4 mmol/L (8-16); BLOOD UREA NITROGEN 10 mg/dL (7-26); BUN/CREATININE RATIO 14 (6-25); CALCIUM 8.2 mg/dL (8.4-10.2); CARBON DIOXIDE 25 mmol/L (22-29); CHLORIDE 108 mmol/L (98-107); CREATININE, SERUM 0.73 mg/dL (0.72-1.25); EST GLOMERULAR FILTRATION RATE > 60 ML/MIN (60-); GLUCOSE 108 mg/dL (74-118); POTASSIUM 3.4 mmol/L (3.5-5.1); SODIUM 142 mmol/L (136-145)
[2018-05-20] MEDS: CLINDAMYCIN 300MG 50 ML IV SCH (06:57)
[2018-05-20] MEDS ORDERED: POTASSIUM CHLORIDE 20 MEQ TAB CR PO NR ×3 (08:30→15:15)
[2018-05-20] MEDS: DOCUSATE SODIUM 100 MG CAP PO SCH (09:11)
[2018-05-20] MEDS ORDERED: METOPROLOL SUCCINATE 25 MG TAB XL PO SCH ×2 (11:30→13:30)
--- NOTE | 2018-05-20 15:28 | Progress Note ---
DATE: May 20, 2018 CARDIOLOGY PROGRESS NOTE SUBJECTIVE: The patient denies chest pain or shortness of breath. OBJECTIVE VITAL SIGNS: Temperature 98.6 degrees, pulse 60, respiratory rate 18, blood pressure 138/69. Oxygen saturation 99% on room air. GENERAL: Awake, alert, elderly man in no acute distress. LUNGS: Clear to auscultation bilaterally. No wheezes or crackles. CARDIOVASCULAR: Normal rate, irregularly irregular. No murmurs. Normal S1 and S2. ABDOMEN: Soft and nontender. EXTREMITIES: No edema. CARDIAC MEDICATIONS: Metoprolol succinate 25 mg p.o. daily. LABORATORY DATA: WBC 8.38, hemoglobin 9.2, hematocrit 27.7, platelets 235,000. Sodium 142, potassium 3.4, chloride 108, CO2 of 25, BUN 10, creatinine 0.73. TELEMETRY: Atrial fibrillation, rate controlled. IMPRESSION 1. Paroxysmal atrial fibrillation, not on anticoagulation due to current hematuria. 2. Lymphedema with compression stockings in place. 3. Bladder cancer, status post cystoprostatectomy on May 15, 2018. 4. Chronic kidney disease. RECOMMENDATIONS: Continue current cardiac medications. Anticoagulation remains on hold given recent surgery and subsequent anemia. Once the patient can be restarted on anticoagulation from a surgical standpoint, and hemoglobin and hematocrit remain stable, we will discuss long-term anticoagulation at that time. Thank you for this consult. We will continue to follow. Job#: [id number] GH MTDD
[2018-05-20] MEDS: CALCIUM CARBONATE 500 MG CHEWABLE TABS PO SCH (17:03)
[2018-05-21] VITALS (8 sets, daily range): BP systolic 122–149; BP diastolic 58–76
[2018-05-21 05:56] LABS: BASOPHILS % 0.4 % (0.0-1.0); EOSINOPHILS # (AUTO) 0.3 (0.0-0.4); EOSINOPHILS % 3.7 % (0.0-6.0); HEMATOCRIT 26.7 % (38.2-49.6); HEMOGLOBIN 9.1 g/dL (14.0-18.0); LYMPHOCYTES % 13.7 % (18.0-39.1); MEAN CORPUSCULAR HEMOGLOBIN 31.4 pg (28-32); MEAN CORPUSCULAR HGB CONC 34.1 g/dL (31-35); MEAN CORPUSCULAR VOLUME 92.1 fL (81-99); MONOCYTES # (AUTO) 0.6 (0.2-0.8); MONOCYTES % 7.5 % (4.4-11.3); NEUTROPHILS # (AUTO) 5.4 (2.1-6.9); NEUTROPHILS % 73.5 % (38.7-80.0); PLATELET COUNT 271 x10e3/uL (140-360); RED CELL DISTRIBUTION WIDTH 13.9 % (11.7-14.4)
[2018-05-21 06:14] LABS: ANION GAP 11.4 mmol/L (8-16); BLOOD UREA NITROGEN 10 mg/dL (7-26); BUN/CREATININE RATIO 14 (6-25); CALCIUM 8.2 mg/dL (8.4-10.2); CARBON DIOXIDE 23 mmol/L (22-29); CHLORIDE 107 mmol/L (98-107); EST GLOMERULAR FILTRATION RATE > 60 ML/MIN (60-); GLUCOSE 104 mg/dL (74-118); POTASSIUM 3.4 mmol/L (3.5-5.1); SODIUM 138 mmol/L (136-145)
[2018-05-21] MEDS: CALCIUM CARBONATE 500 MG CHEWABLE TABS PO SCH ×2 (08:30→16:59)
[2018-05-21] MEDS: METOPROLOL SUCCINATE 25 MG TAB XL PO SCH (08:30)
[2018-05-21] MEDS ORDERED: POTASSIUM CHLORIDE 10 MEQ TABCR PO NR (10:30)
[2018-05-21] MEDS ORDERED: PANTOPRAZOLE SOD 40 MG TABEC PO NR (10:30)
[2018-05-21] MEDS ORDERED: METOCLOPRAMIDE HCL 10 MG/2ML VIAL IV NR (10:30)
--- NOTE | 2018-05-21 14:52 | Diagnostic Imaging Report ---
EXAM: XR CHEST 1 VIEW DATE: 05/21/2018 10:31 AM INDICATION: CHF COMPARISON: 05/17/2018 FINDINGS: Lines and Tubes: None Heart and Mediastinum: Heart prominent. Lungs and Pleura: Small pleural effusions with bibasilar opacities suggesting edema, atelectasis, and/or pneumonia. Bones and Soft Tissues: No acute findings. IMPRESSION: 1. No significant interval change. Signed by: Dr. Elías Buckner MD on 05/21/2018 1:25 PM
[2018-05-21] MEDS ORDERED: POTASSIUM CHLORIDE 20 MEQ TAB CR PO NR (16:15)
--- NOTE | 2018-05-21 16:47 | Progress Note ---
DATE: May 21, 2018 CARDIOLOGY PROGRESS NOTE SUBJECTIVE: The patient denies chest pain or shortness of breath. OBJECTIVE VITAL SIGNS: Temperature 97.3 degrees, pulse 63, respiratory rate 18, blood pressure 139/63, oxygen saturation 99% on room air. GENERAL: Awake, alert, elderly man in no acute distress. LUNGS: Clear to auscultation bilaterally. No wheezes or crackles. CARDIOVASCULAR: Normal rate, irregularly irregular. No murmurs. Normal S1 and S2. ABDOMEN: Soft and nontender. EXTREMITIES: No edema. CARDIAC MEDICATIONS: Metoprolol succinate 25 mg p.o. daily. LABORATORY DATA: WBC 7.38, hemoglobin 9.1, hematocrit 26.7, platelets 271,000, sodium 138, potassium 3.4, chloride 107, CO2 of 23, BUN 10, creatinine 0.7. TELEMETRY: Atrial fibrillation, rate controlled. IMPRESSION 1. Paroxysmal atrial fibrillation, not on anticoagulation due to recurrent hematuria. 2. Lymphedema with compression stockings in place. 3. Bladder cancer, status post cystoprostatectomy on May 15, 2018. 4. Chronic kidney disease. RECOMMENDATIONS: Continue current cardiac medications. Anticoagulation remains on hold given recent surgery and subsequent anemia. Once okay from a surgical standpoint, plan to restart anticoagulation at that time. Thank you for this consult. We will continue to follow. Job#: [id number] GH
[2018-05-22] VITALS (7 sets, daily range): BP systolic 124–146; BP diastolic 63–66
[2018-05-22 04:38] LABS: BASOPHILS % 0.4 % (0.0-1.0); EOSINOPHILS # (AUTO) 0.3 (0.0-0.4); EOSINOPHILS % 4.4 % (0.0-6.0); HEMATOCRIT 26.5 % (38.2-49.6); HEMOGLOBIN 8.8 g/dL (14.0-18.0); LYMPHOCYTES # (AUTO) 1.3 (1.0-3.2); LYMPHOCYTES % 18.1 % (18.0-39.1); MEAN CORPUSCULAR HEMOGLOBIN 31.3 pg (28-32); MEAN CORPUSCULAR HGB CONC 33.2 g/dL (31-35); MEAN CORPUSCULAR VOLUME 94.3 fL (81-99); MONOCYTES # (AUTO) 0.5 (0.2-0.8); MONOCYTES % 6.9 % (4.4-11.3); NEUTROPHILS # (AUTO) 4.9 (2.1-6.9); NEUTROPHILS % 68.8 % (38.7-80.0); PLATELET COUNT 278 x10e3/uL (140-360); RED BLOOD COUNT 2.81 x10e6/uL (4.3-5.7); RED CELL DISTRIBUTION WIDTH 14.2 % (11.7-14.4)
[2018-05-22 04:54] LABS: ANION GAP 11.8 mmol/L (8-16); BLOOD UREA NITROGEN 12 mg/dL (7-26); BUN/CREATININE RATIO 16 (6-25); CALCIUM 8.2 mg/dL (8.4-10.2); CARBON DIOXIDE 21 mmol/L (22-29); CHLORIDE 110 mmol/L (98-107); CREATININE, SERUM 0.75 mg/dL (0.72-1.25); EST GLOMERULAR FILTRATION RATE > 60 ML/MIN (60-); GLUCOSE 107 mg/dL (74-118); POTASSIUM 3.8 mmol/L (3.5-5.1); SODIUM 139 mmol/L (136-145)
[2018-05-22] MEDS: METOPROLOL SUCCINATE 25 MG TAB XL PO SCH (08:16)
[2018-05-22] MEDS: PANTOPRAZOLE SOD 40 MG TABEC PO SCH (09:18)
[2018-05-22] MEDS: CALCIUM CARBONATE 500 MG CHEWABLE TABS PO SCH ×2 (09:18→15:55)
[2018-05-22] MEDS ORDERED: MAGNESIUM SULFATE 2GM/50ML 50 ML IV ONE (12:30)
--- NOTE | 2018-05-22 16:23 | Consultation ---
DATE OF CONSULTATION: May 22, 2018 REFERRING PHYSICIAN: Dr. Zaragoza I would like to thank Dr. Zaragoza for asking me to see Mr. Chowdary in consultation. REASON FOR CONSULTATION 1. Debilitation, status post radical cystoprostatectomy with resection. 2. Bladder cancer muscle invasion. 3. Stage 2C CKD. 4. AFib. HISTORY: Mr. 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 Had undergone previous radical cystoprostatectomy and ileal conduit placement by Dr. Zaragoza. The patient is really debilitated now, and had actually been in the [facility] unit after previous procedure. He is now being evaluated for inpatient rehab. The patient was seen by Dr. Owens for paroxysmal atrial fibrillation. Also, had some noted lymphedema. PAST MEDICAL HISTORY: Stage IV bladder cancer, hypertension, AFib, hyperlipidemia, stage 2 CKD. SURGERIES: Include left great toe amputation, radial cystoprostatectomy with lymph node dissection, bladder cancer resection several years ago. SOCIAL HISTORY: Lives with his son in a 1-story home. He was ambulatory, but occasionally used a walker or cane depending on the situation. FAMILY HISTORY: Noncontributory. ALLERGIES: PLEASE REFER TO ELECTRONIC MEDICAL RECORDS. REVIEW OF SYSTEMS GENERAL: Has no fevers or chills. HEENT: Eyes: Denies. Ears: Denies. Oral: Denies. NECK: Denies. CARDIAC: Denies. CHEST: Denies. GI: Denies. : Denies. LUNGS: Denies. White cell count of 7.2, hemoglobin 8.8, hematocrit 26.5, and platelets of 278,000. White cell count of 139, potassium 3.8, BUN 12, creatinine 0.75. Chest x-ray shows no significant interval change. PHYSICAL EXAMINATION GENERAL: The patient is awake, alert and pleasant. No apparent distress at this time. HEENT: Eyes are conjugant. Oropharynx midline. NECK: Supple. HEART: Regular. LUNGS: Diminished breath sounds. ABDOMEN: Abdominal incision looks great. He has a diverting urostomy. EXTREMITIES: Demonstrates full strength of upper extremities. Bilateral lower extremities 4 to 4+/5 strength bilaterally. Therapy [place], he is up and mobilizing with contact guard assist, but he says he still has problems with his balance. IMPRESSION 1. Debility following radical cystoprostatectomy with diverting urostomy secondary to bladder cancer with muscle invasion. 2. Stage 2 chronic kidney disease. 3. Chronic atrial fibrillation. 4. The patient with impaired mobility and even premorbidly. PLAN: Will check with the insurance for transfer to rehab. He has been in a skilled unit before with varying results. Continue supportive care. Precautions for falls. Discussed with case management and the patient. Will try to get insurance approval for transfer to rehab. Job#: [id number] MILKA
--- NOTE | 2018-05-22 17:42 | Progress Note ---
DATE: May 22, 2018 CARDIOLOGY PROGRESS NOTE SUBJECTIVE: No major events overnight. Patient continues to recover well after his surgery, eating a solid diet now, ambulating somewhat with assistance. OBJECTIVE GENERAL: Well-developed, elderly white male. CARDIOVASCULAR: Regular rate and rhythm. No murmur, rubs, or gallops. Palpable carotid pulses. Palpable femoral pulses. Palpable pedal pulses. No peripheral edema. RESPIRATORY: No respiratory distress. Lungs are clear to auscultation bilaterally. ABDOMEN: Soft, mildly tender at the surgical site, nondistended. NEURO AND PSYCH: Alert and oriented to person, place, and time. Normal affect. LABORATORY DATA: Reviewed. IMAGING DATA: Reviewed. TELEMETRY DATA: Reviewed. ASSESSMENT 1. Paroxysmal atrial fibrillation, not on anticoagulation due to recurrent hematuria. 2. Lymphedema, compression stockings in place. 3. Bladder cancer, status post cystoprostatectomy on May 15, 2018. 4. Chronic kidney disease. PLAN: Continue current cardiac medication. Anticoagulation on hold given recent surgery and subsequent anemia. Once okay from surgical standpoint, patient can resume his rivaroxaban 15 mg q.h.s. Thank you for this consult. We will continue to follow. Job#: [id number] EZEQUIEL
[2018-05-23] VITALS (7 sets, daily range): BP systolic 123–136; BP diastolic 58–66
[2018-05-23 04:43] LABS: BASOPHILS % 0.5 % (0.0-1.0); EOSINOPHILS # (AUTO) 0.4 (0.0-0.4); EOSINOPHILS % 4.4 % (0.0-6.0); HEMATOCRIT 27.5 % (38.2-49.6); HEMOGLOBIN 9.3 g/dL (14.0-18.0); LYMPHOCYTES # (AUTO) 1.6 (1.0-3.2); LYMPHOCYTES % 19.8 % (18.0-39.1); MEAN CORPUSCULAR HEMOGLOBIN 31.6 pg (28-32); MEAN CORPUSCULAR HGB CONC 33.8 g/dL (31-35); MEAN CORPUSCULAR VOLUME 93.5 fL (81-99); MONOCYTES # (AUTO) 0.6 (0.2-0.8); MONOCYTES % 7.8 % (4.4-11.3); NEUTROPHILS # (AUTO) 5.3 (2.1-6.9); NEUTROPHILS % 66.2 % (38.7-80.0); PLATELET COUNT 358 x10e3/uL (140-360); RED BLOOD COUNT 2.94 x10e6/uL (4.3-5.7); RED CELL DISTRIBUTION WIDTH 14.3 % (11.7-14.4)
[2018-05-23 05:04] LABS: ALANINE AMINOTRANSFERASE 31 IU/L (0-55); ALBUMIN/GLOBULIN RATIO 0.6 (0.8-2.0); ALKALINE PHOSPHATASE 57 IU/L (40-150); BLOOD UREA NITROGEN 12 mg/dL (7-26); BUN/CREATININE RATIO 15 (6-25); CALCIUM 8.3 mg/dL (8.4-10.2); CARBON DIOXIDE 21 mmol/L (22-29); CHLORIDE 107 mmol/L (98-107); EST GLOMERULAR FILTRATION RATE > 60 ML/MIN (60-); GLUCOSE 96 mg/dL (74-118); MAGNESIUM 1.5 MG/DL (1.3-2.1); SODIUM 137 mmol/L (136-145)
[2018-05-23] MEDS: METOPROLOL SUCCINATE 25 MG TAB XL PO SCH (07:53)
[2018-05-23] MEDS: PANTOPRAZOLE SOD 40 MG TABEC PO SCH (07:58)
[2018-05-23] MEDS: CALCIUM CARBONATE 500 MG CHEWABLE TABS PO SCH ×2 (07:59→16:32)
--- NOTE | 2018-05-23 13:30 | Progress Note ---
DATE: May 23, 2018 CARDIOLOGY PROGRESS NOTE SUBJECTIVE: Patient denies chest pain or shortness of breath. OBJECTIVE VITAL SIGNS: Temperature 96.6 degrees, pulse 78, respiratory rate 18, blood pressure 127/60, oxygen saturation 100% on air room. GENERAL: Awake, alert, in no acute distress. LUNGS: Clear to auscultation bilaterally. No wheezes or crackles. CARDIOVASCULAR: Normal rate, irregularly irregular. No murmurs. Normal S1 and S2. ABDOMEN: Soft and nontender. EXTREMITIES: No edema. CARDIAC MEDICATIONS: Metoprolol succinate 25 mg p.o. daily. LABORATORY DATA: WBC 7.99, hemoglobin 9.3, hematocrit 27.5, platelets 358. Sodium 137, potassium 4, chloride 107, CO2 of 21, BUN 12, creatinine 0.8. TELEMETRY: Atrial fibrillation, rate controlled. IMPRESSION 1. Paroxysmal atrial fibrillation, not on anticoagulation due to recurrent hematuria and recent bladder surgery. 2. Lymphedema with compression stockings in place. 3. Bladder cancer, status post cystoprostatectomy on May 15, 2018. 4. Chronic kidney disease. RECOMMENDATIONS: Continue current cardiac medication. Anticoagulation remains on hold given recent surgery and subsequent anemia. Once okay from surgical standpoint, plan to restart anticoagulation at this time. Thank you for this consult. We will continue to follow. Job#: [id number] SUB
[2018-05-24] VITALS (10 sets, daily range): BP systolic 117–153; BP diastolic 55–66
[2018-05-24 04:36] LABS: BASOPHILS % 0.4 % (0.0-1.0); EOSINOPHILS # (AUTO) 0.3 (0.0-0.4); EOSINOPHILS % 3.6 % (0.0-6.0); HEMATOCRIT 27.4 % (38.2-49.6); HEMOGLOBIN 9.2 g/dL (14.0-18.0); LYMPHOCYTES # (AUTO) 1.1 (1.0-3.2); LYMPHOCYTES % 13.8 % (18.0-39.1); MEAN CORPUSCULAR HEMOGLOBIN 31.5 pg (28-32); MEAN CORPUSCULAR HGB CONC 33.6 g/dL (31-35); MEAN CORPUSCULAR VOLUME 93.8 fL (81-99); MONOCYTES # (AUTO) 0.6 (0.2-0.8); MONOCYTES % 7.5 % (4.4-11.3); NEUTROPHILS # (AUTO) 5.7 (2.1-6.9); NEUTROPHILS % 73.5 % (38.7-80.0); PLATELET COUNT 385 x10e3/uL (140-360); RED BLOOD COUNT 2.92 x10e6/uL (4.3-5.7); RED CELL DISTRIBUTION WIDTH 14.2 % (11.7-14.4)
[2018-05-24 05:03] LABS: ALANINE AMINOTRANSFERASE 29 IU/L (0-55); ALBUMIN/GLOBULIN RATIO 0.6 (0.8-2.0); ALKALINE PHOSPHATASE 61 IU/L (40-150); ANION GAP 12.9 mmol/L (8-16); BLOOD UREA NITROGEN 13 mg/dL (7-26); BUN/CREATININE RATIO 16 (6-25); CALCIUM 8.5 mg/dL (8.4-10.2); CARBON DIOXIDE 21 mmol/L (22-29); CHLORIDE 107 mmol/L (98-107); CREATININE, SERUM 0.82 mg/dL (0.72-1.25); EST GLOMERULAR FILTRATION RATE > 60 ML/MIN (60-); GLUCOSE 99 mg/dL (74-118); POTASSIUM 3.9 mmol/L (3.5-5.1); SODIUM 137 mmol/L (136-145)
[2018-05-24] MEDS: PANTOPRAZOLE SOD 40 MG TABEC PO SCH (07:45)
[2018-05-24] MEDS: CALCIUM CARBONATE 500 MG CHEWABLE TABS PO SCH ×2 (07:45→17:27)
[2018-05-24] MEDS: METOPROLOL SUCCINATE 25 MG TAB XL PO SCH (09:27)
--- NOTE | 2018-05-24 11:14 | Diagnostic Imaging Report ---
PROCEDURE: A single AP view of the chest. COMPARISON: 05/21/18 INDICATIONS: PNEUMONIA FINDINGS: Lines/tubes: None. Lungs: The lungs are well inflated. Improved bibasilar mild hazy opacification, seen on prior exam. Pleura: There is no significant pleural effusion or pneumothorax. Heart and mediastinum: The heart and the mediastinum are unremarkable. Bones: No acute bony abnormality. IMPRESSION: Decreased bibasilar hazy opacifications representing improved atelectasis and/or pneumonia. Dictated by: Ramon Francis M.D. on 05/24/2018 at 11:20 Electronically approved by: Ramon Francis M.D. on 05/24/2018 at 11:20
--- NOTE | 2018-05-24 12:46 | Progress Note ---
DATE: May 24, 2018 CARDIOLOGY PROGRESS NOTE SUBJECTIVE: No major events overnight. Patient is ambulating without any issues, eating a normal diet, normal bowel movements. No chest pain, shortness of breath or palpitations. No orthopnea or PND noted. REVIEW OF SYSTEMS: As above, otherwise negative. OBJECTIVE VITAL SIGNS: Temperature 96.6, pulse 82, respiratory rate 18, blood pressure 125/72, oxygen sat 100% room air. GENERAL: Awake, alert, no acute distress. LUNGS: Clear to auscultation bilaterally. No wheezes or crackles. CARDIOVASCULAR: Normal rate, irregular rhythm. No murmurs. Normal S1, S2. ABDOMEN: Soft, nontender. Surgical goyo in place. EXTREMITIES: No edema. CARDIAC MEDICATIONS: Reviewed. LABORATORY DATA: Reviewed. TELEMETRY DATA: Reviewed. Rate-controlled atrial fibrillation. IMPRESSION/PROBLEM 1. Paroxysmal atrial fibrillation, not on anticoagulation due to recurrent hematuria and recent bladder surgery. 2. Lymphedema with compression stockings. 3. Bladder cancer status post cystoprostatectomy May 15, 2018. 4. Chronic kidney disease. RECOMMENDATIONS: His rates are well controlled on just low dose metoprolol. Anticoagulation on hold given recent surgery and subsequent anemia. Okay to resume his Xarelto once acceptable from post-surgical point of view. From a cardiovascular standpoint, patient is okay to be discharge home on his current medical regimen with plan to resume Xarelto once he recovers from post-surgical anemia. Thank you for this consult. We will continue to follow. Job#: [id number] JERMAIN
[2018-05-25 04:00] VITALS: BP 111/55
[2018-05-25 05:57] LABS: BASOPHILS # (AUTO) 0.1 (0.0-0.1); BASOPHILS % 0.6 % (0.0-1.0); EOSINOPHILS # (AUTO) 0.3 (0.0-0.4); EOSINOPHILS % 3.8 % (0.0-6.0); HEMATOCRIT 27.7 % (38.2-49.6); HEMOGLOBIN 9.4 g/dL (14.0-18.0); LYMPHOCYTES # (AUTO) 1.4 (1.0-3.2); LYMPHOCYTES % 16.8 % (18.0-39.1); MEAN CORPUSCULAR HEMOGLOBIN 31.4 pg (28-32); MEAN CORPUSCULAR HGB CONC 33.9 g/dL (31-35); MEAN CORPUSCULAR VOLUME 92.6 fL (81-99); MONOCYTES # (AUTO) 0.6 (0.2-0.8); MONOCYTES % 6.7 % (4.4-11.3); NEUTROPHILS # (AUTO) 5.9 (2.1-6.9); NEUTROPHILS % 70.9 % (38.7-80.0); PLATELET COUNT 393 x10e3/uL (140-360); RED BLOOD COUNT 2.99 x10e6/uL (4.3-5.7); RED CELL DISTRIBUTION WIDTH 14.2 % (11.7-14.4)
[2018-05-25 06:18] LABS: ALANINE AMINOTRANSFERASE 30 IU/L (0-55); ALBUMIN/GLOBULIN RATIO 0.6 (0.8-2.0); ALKALINE PHOSPHATASE 64 IU/L (40-150); ANION GAP 12.9 mmol/L (8-16); BLOOD UREA NITROGEN 14 mg/dL (7-26); BUN/CREATININE RATIO 18 (6-25); CALCIUM 8.5 mg/dL (8.4-10.2); CARBON DIOXIDE 22 mmol/L (22-29); CHLORIDE 108 mmol/L (98-107); CREATININE, SERUM 0.77 mg/dL (0.72-1.25); EST GLOMERULAR FILTRATION RATE > 60 ML/MIN (60-); GLUCOSE 98 mg/dL (74-118); POTASSIUM 3.9 mmol/L (3.5-5.1); SODIUM 139 mmol/L (136-145)
[2018-05-25 08:00] VITALS: BP 142/65
[2018-05-25] MEDS: PANTOPRAZOLE SOD 40 MG TABEC PO SCH (08:00)
[2018-05-25] MEDS: CALCIUM CARBONATE 500 MG CHEWABLE TABS PO SCH ×2 (08:00→17:39)
[2018-05-25] MEDS: METOPROLOL SUCCINATE 25 MG TAB XL PO SCH (08:01)
[2018-05-25 09:40] VITALS: BP 142/65
[2018-05-25] MEDS ORDERED: CEFTRIAXONE SOD 1 GM VIAL IV SCH (10:00)
[2018-05-25 13:30] VITALS: BP 103/58
[2018-05-25 16:46] VITALS: BP 120/59
[2018-05-25] MEDS ORDERED: CEFUROXIME AXETIL 250 MG TAB PO SCH (17:00)
--- NOTE | 2018-05-25 18:21 | Progress Note ---
DATE: May 25, 2018 CARDIOLOGY PROGRESS NOTE SUBJECTIVE: No major events overnight. Continues to feel well and performed well while doing physical therapy. REVIEW OF SYSTEMS: As above, otherwise negative. OBJECTIVE VITAL SIGNS: Temperature 96.7, pulse 75, respiratory rate 20, blood pressure 120/59, satting 95% on room air. GENERAL: An elderly white man in no acute distress. CARDIOVASCULAR: PMI nondisplaced. Irregular S1 and S2, no murmurs, rubs or gallops. Normal carotid pulses. Normal radial pulses. Normal p.o. pulses. LUNGS: Clear to auscultation bilaterally. No respiratory distress. ABDOMEN: Soft and nontender, nondistended. Surgical goyo in place. EXTREMITIES: No edema. CURRENT MEDICATIONS: Reviewed. LABORATORY DATA: Reviewed. TELEMETRY DATA: Reviewed. Rate controlled atrial fibrillation. ASSESSMENT: 1. Paroxysmal atrial fibrillation, not on anticoagulation due to recurrent hematuria and recent bladder surgery. 2. Lymphedema with compression stockings. 3. Bladder cancer, status post cystoprostatectomy on May 15, 2018. 4. Chronic kidney disease. RECOMMENDATIONS: He has a rate-controlled atrial fibrillation on just low-dose metoprolol. Anticoagulation on hold. He underwent recent surgery and subsequent anemia. Okay to resume Xarelto once acceptable from surgical point of view. From a cardiovascular standpoint, the patient is ready to be discharged home on his current medical regimen. Will plan to resume Xarelto once he recovers from post surgical anemia. Thank you for this consult. We will continue to follow. Job#: [id number]
--- NOTE | 2018-05-26 10:10 | Discharge Summary ---
ADMIT DIAGNOSES 1. Metastatic bladder cancer with muscle invasion. 2. Stage 3 chronic kidney disease. 3. Chronic atrial fibrillation. DISCHARGE DIAGNOSES 1. Status post radical cystoprostatectomy with lymph node resection and ileal conduit placement on May 15, 2018. 2. Bladder cancer with muscle invasion. 3. Stage 2 chronic kidney disease. 4. Chronic atrial fibrillation. 5. Post hemorrhagic anemia, resolving. 6. Bilateral pneumonia, likely hospital-acquired. 7. Hypertensive heart disease. HOSPITAL COURSE: This is an 87-year-old white male who was admitted to [facility] with the diagnosis of metastatic bladder cancer with muscle invasion. During this hospitalization, the patient was seen by Dr. Zaragoza, who performed a cystoprostatectomy with lymph node resection and ileal conduit placement. During this hospitalization, he was found to have paroxysmal atrial fibrillation, but anticoagulation was not started due to recurrent hematuria and recent bladder surgery. The patient's hospitalization was unremarkable. He did receive physical therapy during this hospital stay. The patient's hemoglobin on the day of discharge was 9.4 g/dL. On the day of discharge, the patient's BUN and creatinine was 14 and 0.77 respectively. The patient was diagnosed with bibasilar pneumonia during this hospitalization. Thus, he was started on intravenous ceftriaxone, which he tolerated quite well. The decision was made to transfer the patient to a fdc facility where he could continue antibiotic therapy for his pneumonia and daily physical therapy. The patient's antibiotics were changed from intravenous ceftriaxone to oral cefuroxime. DISCHARGE MEDICATIONS 1. Cefuroxime 500 mg b.i.d. for 7 more days. 2. Calcium carbonate 500 mg b.i.d. 3. Metoprolol succinate 25 mg daily. 4. Pantoprazole 40 mg daily. 5. Temazepam 15 mg at bedtime. 6. Tylenol No. 3 one every 4 hours p.r.n. pain. FOLLOWUP INSTRUCTIONS: As previously stated. The patient will transfer to a local fdc facility, namely the [facility] where he will continue oral antibiotic therapy, as well as daily physical therapy. FLORY FELIPE MD Job#: [id number] RI
--- NOTE | 2018-06-15 15:59 | Diagnostic Imaging Report ---
CORRECTION Corrected on: 06/15/2018; Dictated by: Tomasz Taveras M.D. on 06/15/2018 at 16:07 Electronically approved by: Tomasz Taveras M.D. on 06/15/2018 at 16:07 PROCEDURE: A single AP view of the chest. COMPARISON: Patients [facility], , CHEST SINGLE (PORTABLE), 05/15/2018, 19:08. INDICATIONS: CONGESTIVE HEART FAILURE FINDINGS: Lines/tubes: None. Lungs: Mild prominence of the pulmonary vasculature bilaterally. Pleura: There is no pleural effusion or pneumothorax. Heart and mediastinum: The cardiac silhouette is mildly enlarged. Bones: No acute bony abnormality. IMPRESSION: 1. Mild bilateral pulmonary venous congestion. Poli Boyce M.D. Dictated by: Poli Boyce M.D. on 05/17/2018 at 16:03 Electronically approved by: Tomasz Taveras MD on 06/15/2018 at 16:05
[2018-06-27] MEDS ORDERED: METOPROLOL SUCC25 MG PO (10:43)
[2018-06-27] MEDS ORDERED: CALCIUM CARBON500 MG PO (10:43)
[2018-06-27] MEDS ORDERED: PANTOPRAZOLE SO40 MG PO (10:43)
[2018-06-27] MEDS ORDERED: BENADRYL ALLERG25 MG PEG (10:43)
[2018-06-27] MEDS ORDERED: TYLENOL WITH C1 EACH PO (10:43)
[2018-06-27] MEDS ORDERED: ZOFRAN ODT4 MG PO (10:43)
[2018-06-27] MEDS ORDERED: CLONIDINE HCL0.1 MG PO (10:43)
--- NOTE | 2018-07-25 09:56 | Operative Report ---
DATE OF PROCEDURE: May 15, 2018 PREOPERATIVE DIAGNOSIS: Muscle invasive bladder cancer. POSTOPERATIVE DIAGNOSIS: Muscle invasive bladder cancer. OPERATIONS PERFORMED 1. Anterior pelvic exoneration. 2. Bilateral pelvic lymphadenectomy. 3. Bilateral ureteroileal conduit. COOK PICKLED MEAT: Dr. Caitlyn Zaragoza ANESTHESIA: General. COMPLICATIONS: None. CLINICAL SUMMARY: Torey Chowdary is an 87-year-old man with bladder cancer. The patient failed to follow up for 1-1/2 years. Upon re-establishing contact, the patient was evaluated with surveillance cystoscopy for hematuria. He was found to have recurrent cancer. Biopsy of this cancer revealed muscle invasion. Options were discussed with the patient and the family on multiple occasions. The significant risks of performing this procedure in such an advanced age patient was acknowledged and accounted for by the family and the patient. They elected to proceed with surgery as planned. They are aware of the risks of bleeding, infection, injury to adjacent structures, need for additional procedures, the potential for mortality and morbidity associated with the surgery, incomplete cancer resection, potential need for chemotherapy. They understood all these risks and elected to proceed. OPERATIVE PROCEDURE IN DETAIL: Informed consent was verified. Torey Chowdary was properly identified and taken to the operating room and placed on the operating table in the supine position. Anesthesia was uneventfully begun. The patient's chest, abdomen and genitalia were shaved, prepared and draped in the usual sterile fashion. Banegas catheter was placed. A midline incision was made from the symphysis pubis to the left of the umbilicus and into the midepigastrium. We went through all layers of the abdominal wall. We entered the abdomen supraumbilically. We then divided the right remnant just posterior to the umbilicus. We then dissected the posterior rectus sheath in a triangulated fashion caudally and included in the specimen. We then gave our attention to both pelvic lymph node areas. We performed bilateral pelvic lymphadenectomy utilizing Hemoclips for hemostasis, as well as controlling lymphatic channels, margins of resection bilaterally included the external iliac artery, the anterolateral margin, obturator fossa as the posteromedial margin, Juan José's ligaments, the distal margin, and the bifurcation of the iliac vessels proximally. We removed these packets and sent them individually. We then isolated both ureters. The right ureter was hydronephrotic and enlarged. We divided both ureters close to the bladder and sent the distal ureters for margin. We then divided the posterior peritoneum at the sulcus between the bladder and the sigmoid colon. Then we proceeded to progressively take down the pedicles of the bladder utilizing an endoscopic stapling device. Once this was done to the level of the midprostate, we turned our attention anteriorly. We isolated and controlled and divided the dorsal venous complex. The urethra was then divided. We completed the pedicle dissection and removed the specimen from the field. Copious irrigation was performed. Hemostasis was verified. A large boar Banegas catheter with a 30 mL balloon was placed in the patient's urethra and filled with 60 mL of sterile water. Then utilized as a mechanism of tamponade of the urethral stump. We then turned our attention to the diversion. We isolated a loop of distal ileum. We harvested and re-established bowel continuity with stapled anastomosis. We then brought the left ureter under the mesentery to the level of the sacral promontory to the right lower quadrant. We proceeded performing bilateral ureteroileal anastomoses with interrupted 4-0 Vicryl sutures. Approximately, 10 sutures were utilized for each anastomosis. The anastomoses were performed over single J-stents. We then matured the stoma to the right of the umbilicus. We created Meri stoma. Secured the stoma to the fascia with heavy Vicryl suture and matured the stoma utilizing 3-0 chromic sutures. A stomal stent was placed. Was fashioned from a 24-[place] Banegas catheter. The stent as well as the 2 single J-stents were secured to the skin with nylon suture. A Rigo drain was placed through the left lower quadrant and secured to the skin with nylon suture. It was placed in such a fashion as to drain the entire pelvis, as well as posterior to the ileal conduit. Copious irrigation was performed. We verified hemostasis. The rectus muscles were approximated loosely. The fascia was approximated with heavy Vicryl suture in a interrupted figure-of-8 fashion. The skin was approximated with skin goyo. There were no complications to the procedure. The patient tolerated procedure well. Sponge, needle and instrument counts were correct times 2 at the end of the case. The patient was stable throughout the procedure and upon transportation to the recovery room. Plans will be to proceed with routine postoperative care and of course ongoing urological followup. Job#: [id number] [place]
== END 2018-05-25 18:59 | DRG 653 ==
LOC: OR 10:41 → ICU 18:39 → OR 05-16 12:00 → ICU 05-16 12:00 → MED/SURG 05-17 18:21
PROVIDERS: ADMIT Internal Medicine; ATTEND Internal Medicine
PROC: 0VT00ZZ Resection of Prostate, Open Approach (ICD-10-PCS; 2018-05-15)
PROC: 0TRB07Z Replacement of Bladder with Autologous Tissue Substitute, Open Approach (ICD-10-PCS; 2018-05-15)
PROC: 07TC0ZZ Resection of Pelvis Lymphatic, Open Approach (ICD-10-PCS; 2018-05-15)
PROC: 0T180ZC Bypass Bilateral Ureters to Ileocutaneous, Open Approach (ICD-10-PCS; principal; 2018-05-15 13:00)
PROC: 0TTB0ZZ Resection of Bladder, Open Approach (ICD-10-PCS; 2018-05-15 13:00)
DX: C67.8 Malignant neoplasm of overlapping sites of bladder (principal); J18.9 Pneumonia, unspecified organism; D62 Acute posthemorrhagic anemia; N17.9 Acute kidney failure, unspecified; C67.9 Malignant neoplasm of bladder, unspecified; N18.2 Chronic kidney disease, stage 2 (mild); I48.0 Paroxysmal atrial fibrillation; Z79.01 Long term (current) use of anticoagulants; E78.5 Hyperlipidemia, unspecified; I89.0 Lymphedema, not elsewhere classified; R41.0 Disorientation, unspecified; E87.6 Hypokalemia; I13.10 Hypertensive heart and chronic kidney disease without heart failure, with stage 1 through stage 4 chronic kidney disease, or unspecified chronic kidney disease
CPT/HCPCS: 36415; 71045; 74018; 80048; 80053; 83735; 83880; 84132; 85025; 86850; 86900; 86920; 88304; 88305; 88307; 88309; 88331; 88332; 92950; 93306; 96367; 97139; J0690; J0696; J1100; J1885; J1940; J2001; J2270; J2405; J2543; J2765; J7030

== ENCOUNTER → 2018-06-27 | Day surgery (SDC) | payer MEDICARE ==
[~2018-06-27] VITALS: Ht 185.4 cm; Wt 77.1 kg
[~2018-06-27] MED LIST changes: +BENADRYL ALLERG25 MG PEG; +CALCIUM CARBON500 MG PO; +CLONIDINE HCL0.1 MG PO; +FENTANYL CITRATE/PF 100MCG/2 ML INJ ONE; +METOPROLOL SUCC25 MG PO; +MIDAZOLAM HCL 2 MG/2 ML VIAL ONE; +PANTOPRAZOLE SO40 MG PO; +TYLENOL WITH C1 EACH PO; +ZOFRAN ODT4 MG PO
[2018-06-27 14:35] VITALS: BP 94/68
[2018-06-27 14:50] VITALS: BP 130/80
[2018-06-27 15:05] VITALS: BP 141/68
--- NOTE | 2018-07-14 10:14 | Diagnostic Imaging Report ---
Bilateral ureteral stent injection and removal with fluoroscopic guidance Pre-Procedure Diagnosis: Bladder cancer, status post cystectomy/ileal conduit with bilateral BUD catheters Post-procedure Diagnosis:Status post removal of bilateral BUD catheters/ureteral stents Heading Maker: Betzy Simpson MD Centrifugal Separator: None Sedation: IV Fentanyl per nursing administration records Radiation Dose: 856.2 cGycm2 (Dose Area Product) Fluoroscopy time 1.8 minutes Estimate blood loss: None Blood administered: None Complications: No immediate complications Specimen: None Procedure: Informed consent was obtained and the patient positioned supine in the fluoroscopy suite. A timeout was performed. The ostomy was removed and the existing bilateral ureteral stents were prepped in sterile fashion. Diagnostic retrograde nephrostograms were performed. See findings below. An Amplatz wire was initially placed in the left ureteral stent unforming the pigtail. The catheter and wire were removed. The Amplatz wire was then placed into the right ureteral stent unforming the pigtail. The catheter and wire were removed. The urostomy bag was replaced. The patient tolerated the procedure well and without immediate complication. Findings: Retrograde nephrostograms demonstrated moderate right and mild left hydronephrosis. No evidence of ureteral stricture. No evidence of contrast leak. The ileal conduit appeared unremarkable. Impression: Bilateral retrograde nephrostograms demonstrating no evidence of stricture or leak. Both ureteral stents were removed. . Signed by: Dr. Betzy Simpson MD on 06/27/2018 3:12 PM
--- OUTSIDE RECORDS SUMMARY | 2018-07-27 05:54 | XMS REPORT | Continuity of Care Document ---
Author Author [facility] Organization [facility] Address [address] [place] [address] Phone Unavailable Care Team Providers Care Multimedia Artist Name Role Phone PEPPERKULWANT Navarrete PCP Insurance Providers Guarantor Betsy Chen Address [address] [place] [phone] Email [email or web address] Payer [employer] Medicare Complete Policy Number [id number] Subscriber's Name Betsy Chen Tony Relationship 18 Self / Same As Patient Group Number [id number] Effective Date 14 Advance Directives Directive Response Recorded Date/Time Does the patient have an advance directive? No 05/15/18 9:38pm If yes, is advance directive on file with [facility]? No 05/15/18 9:38pm If not on file with [facility] will patient provide a copy? No 05/15/18 9:38pm Do you have a Directive to Physician? No 04/25/18 4:00pm Do you have a Medical Power of Security Sme? No 04/25/18 4:00pm Do you have an out of hospital Do Not Resuscitate Order? No 04/25/18 4:00pm Do you have any special needs we should be aware of? No 04/25/18 4:00pm Do you have a support person here with you today? Yes 05/05/18 11:50am Did patient receive Notice of Privacy Practices? Yes 04/25/18 4:00pm Did patient receive patient rights and responsibilities? Yes 04/25/18 4:00pm Problems Medical Problem Onset Date Status Back pain, lumbosacral 07/05/2015 Acute Dizziness 07/05/2015 Acute Fall 07/05/2015 Acute Rhabdomyolysis 07/05/2015 Acute Medications Current Home Medications Medication Dose Units Route Directions Days Qty Instructions Start Date Atorvastatin Calcium 10 Mg Tablet 10 Mg Oral Daily 30 Tab Calcium 600 Mg Oral Daily Cyanocobalamin (Vitamin B-12) 1,000 Mcg Tab 1,000 Mcg Oral Daily 30 Tab Fenofibrate Nanocrystallized (Fenofibrate) 145 Mg Tablet 160 Fish Oil 1,200 Mg Oral Daily Multivitamin Oral Daily Sodium Bicarbonate 650 Mg Tablet 650 Mg Oral Daily 30 Tab Vit D 800 Mg Oral Daily Past Home Medications Medication Directions Ordered Status Cholecalciferol (Vitamin D3) (Vitamin D) 400 Unit Capsule, 400 Units Oral Twice A Day Discontinued Lovastatin (Mevacor*) 20 Mg Tablet, 20 Mg Oral Daily Discontinued Xarelto , 15 Mg Oral Daily Discontinued Social History Social History Problem Response Recorded Date/Time Onset Date Status Hx Psychiatric Problems No 03/28/2018 10:18pm Not Applicable Not Applicable Hx Eating Disorder No 03/28/2018 10:18pm Not Applicable Not Applicable Hx Substance Use Disorder No 03/28/2018 10:18pm Not Applicable Not Applicable Hx Depression No 03/28/2018 10:18pm Not Applicable Not Applicable Hx Alcohol Use No 03/28/2018 10:18pm Not Applicable Not Applicable Hx Substance Use Treatment No 03/28/2018 10:18pm Not Applicable Not Applicable Hx Physical Abuse No 03/28/2018 10:18pm Not Applicable Not Applicable Hospital Discharge Instructions No hospital discharge instruction information available. Plan of Care Discharge Date 05/25/18 6:59pm Disposition [facility] OTHER [facility] Instructions/Education Provided Urinary Tract Infection - Men Prescriptions See Medication Section Additional Instructions/Education CONTINUE CARE ORDERED AT [facility]. FOLLOW UP WITH DR. MAGDA WASHINGTON IN 3 WEEKS AT: [address] OfficeAddress[address] OfficeCity [place] Office[place] [address] OfficeTelephone Functional Status Query Response Date Recorded FUNCTIONAL STATUS . May 17, 2018 2:49pm Assistive Devices None May 15, 2018 10:33pm Ambulation Ability Minimum Assistance May 15, 2018 10:33pm Toileting Ability Minimum Assistance May 25, 2018 6:48pm Allergies, Adverse Reactions, Alerts No known allergies. Immunizations No immunization information available. Vital Signs Acute Vital Signs Vital Response Date/Time Temperature (Fahrenheit) 96.7 degrees F (97.6 - 99.5) 05/25/2018 4:46pm Pulse Pulse Rate (adult) 75 bpm (60 - 90) 05/25/2018 4:46pm Respiratory Rate 20 bpm (12 - 24) 05/25/2018 4:46pm Blood Pressure 120/59 mm Hg 05/25/2018 4:46pm Height 6 ft 1 in 05/15/2018 9:38pm Weight 210.06 lb 05/15/2018 11:10pm Body Mass Index 27.7 kg/m^2 05/25/2018 8:00am Results Laboratory Results Test Name Result Units Flags Reference Collection Date/Time Result Date/ Time Comments Prothrombin Time 14.0 seconds 11.9-14.5 03/28/2018 11:09am 03/28/2018 11:44am Prothromb Time International Ratio 1.17 03/28/2018 11:092017 11:44am Oral Anticoagulant Therapy INR Values: 1. Low Intensity Therapy 1.5 - 2.0 2. Moderate Intensity Therapy 2.0 - 3.0 3. High Intensity Therapy(1) 2.5 - 3.5 4. High Intensity Therapy(2) 3.0 - 4.0 5. Panic Value INR > 5.0 Activated Partial Thromboplast Time 27.9 seconds 23.8-35.5 03/28/2018 11 :09am 03/28/2018 11:45am Urine Color SONAL H YELLOW 03/28/2018 11:1903/28/2018 1:14pm Urine Clarity CLOUDY H CLEAR 03/28/2018 11:03/28/2018 1:14pm Urine Specific [place] 1.025 1.010-1.025 03/28/2018 11:19am 2017 1:14pm Urine pH 6.5 5 - 7 03/28/2018 11:03/28/2018 1:14pm Urine Leukocyte Esterase TRACE H NEGATIVE 03/28/2018 11:2017 1:14pm Urine Nitrite POSITIVE H NEGATIVE 03/28/2018 11:03/28/2018 1: 14pm Urine Protein 3+ H NEGATIVE 03/28/2018 11:03/28/2018 1:14pm Urine Glucose (UA) NEGATIVE NEGATIVE 03/28/2018 11:03/28/2018 1: 14pm Urine Ketones NEGATIVE NEGATIVE 03/28/2018 11:03/28/2018 1:14pm Urine Urobilinogen 0.2 mg/dL 0.2 - 1 03/28/2018 11:03/28/2018 1: 14pm Urine Bilirubin 2+ H NEGATIVE 03/28/2018 11:03/28/2018 1:14pm Confirmatory test currently unavailable. False positive results may occur. Urine Blood 4+ H NEGATIVE 03/28/2018 11:03/28/2018 1:14pm Urine WBC 6-10 /HPF H 0-5 03/28/2018 11:03/28/2018 1:26pm Urine RBC >50 /HPF H 0-5 03/28/2018 11:03/28/2018 1:26pm Urine Bacteria MODERATE /HPF H NONE 03/28/2018 11:03/28/2018 1: 26pm Urine Epithelial Cells RARE /LPF NONE 03/28/2018 11:03/28/2018 1: 26pm Urine Amorphous Sediment RARE FEW 03/28/2018 11:03/28/2018 1: 26pm Urine Mucus FEW H RARE 03/28/2018 11:03/28/2018 1:26pm Urine Random Total Protein 170.0 mg/dL H 1-14 03/30/2018 2:03pm 2017 2:32pm Urine Creatinine 193.18 mg/dL H 63-166 03/30/2018 2:03pm 03/30/2018 2: 32pm Urine Protein/Creatinine Ratio 0.00 03/30/2018 2:03pm 03/30/2018 2: 32pm Lactic Acid Level 17.1 MG/DL 4.5-19.8 03/28/2018 11:03/28/2018 11: 45am Uric Acid 5.5 mg/dL 4.8-8.0 03/30/2018 5:20am 03/30/2018 2:29pm Creatine Kinase 61 IU/L 30-200 03/28/2018 11:0903/28/2018 11:54am Creatine Kinase MB 2.00 ng/mL 0-5.0 03/28/2018 11:03/28/2018 12: 00pm Troponin I 0.025 ng/mL 0-0.300 03/28/2018 11:0903/28/2018 12:00pm Lipase 54 U/L 8-78 03/28/2018 11:0903/28/2018 11:54am Albumin (PEP) 2.3 g/dL L 2.9-4.4 03/31/2018 5:04/04/2018 5:43am Kedmm-1-Jehlnfhca 0.5 g/dL H 0.0-0.4 03/31/2018 5:04/04/2018 5: 43am Ephnu-0-Gxjjqxhlb 1.0 g/dL 0.4-1.0 03/31/2018 5:04/04/2018 5:43am Beta Gamma Globulin 0.8 g/dL 0.7-1.3 03/31/2018 5:04/04/2018 5: 43am Gamma Globulins 0.4 g/dL 0.4-1.8 03/31/2018 5:04/04/2018 5:43am Urine Immunofixation Comment . 03/31/2018 5:04/04/2018 2:27pm An apparent normal immunofixation pattern. Performed at: DA - [facility] [address], [place], [place] [id number] [employer]ing [employer] Member: TERRY Valles MD, Phone: [phone] Total Protein (PEP) 5.1 g/dL L 6.0-8.5 03/31/2018 5:04/04/2018 5: 43am Globulin 2.8 g/dL 2.2-3.9 03/31/2018 5:04/04/2018 5:43am [place] Light Chain Analysis 422.5 mg/L H 3.3-19.4 03/31/2018 5:04/04 5:43am Lambda Light Chain Analysis 11.8 mg/L 5.7-26.3 03/31/2018 5:19am 2017 5:43am Totl [place]/Lambda Light Chain Ratio 35.81 H 0.26-1.65 03/31/2018 5: 19am 04/04/2018 5:43am Performed at: - [address] [id number] [employer] Member: Domingo Combs MD, Phone: [phone] Performed at: [address], [place], [place] [id number] [employer] Member: TERRY Valles MD, Phone: [phone] Protein Electrophoresis M-Kash Not Observed g/dL Not Observed 2017 5:19am 04/04/2018 5:43am Albumin/Globulin Ratio 0.8 0.7-1.7 03/31/2018 5:19am 04/04/2018 5: 43am Protein Electrophoresis Note Comment . 03/31/2018 5:19am 04/04/2018 5 :43am Protein electrophoresis scan will follow via computer, mail, or dehydrator operator delivery. HIV (1&2) Antibody NON-REACTIVE NONREACTIVE 03/31/2018 5:31am 2017 6:15am HIV P24 Antigen NON-REACTIVE NONREACTIVE 03/31/2018 5:31am 2017 6:15am Hepatitis A IgM Antibody Negative 03/31/2018 5:19am 04/03/2018 9: 00am Hepatitis B Surface Antigen Negative 03/31/2018 5:19am 04/03/2018 9 :00am Hepatitis B Core IgM Antibody Negative 03/31/2018 5:19am 2017 9:00am Hepatitis C Antibody <0.1 03/31/2018 5:19am 04/03/2018 9:00am Reference Range: 0.0 - 0.9 s/co ratio Negative: < 0.8 Indeterminate: 0.8 - 0.9 Positive: > 0.9 The CDC recommends that a positive HCV antibody result be followed up with a HCV Nucleic Acid Amplification test (596455). Testing performed by: [address] [address] Dir: Domingo Combs MD SS-A/Ro Antibody <0.2 AI 0.0-0.9 03/31/2018 5:19am 04/01/2018 8:26am SS-B/La Antibody <0.2 AI 0.0-0.9 03/31/2018 5:19am 04/01/2018 8:26am p-ANCA Titer <1:20 titer Neg:<1:20 03/31/2018 5:am 04/04/2018 6:40pm The presence of positive fluorescence exhibiting P-ANCA or C-ANCA patterns alone is not specific for the diagnosis of Marcello's Granulomatosis (WG) or microscopic polyangiitis. Decisions about treatment should not be based solely on ANCA IFA results. The International ANCA Group Consensus recommends follow up testing of positive sera with both MI- 3 and MPO-ANCA enzyme immunoassays. As many as 5% serum samples are positive only by EIA. Ref. AM J Clin Pathol 1999;111:507-513. c-ANCA Titer <1:20 titer Neg:<1:20 03/31/2018 5:19am 04/04/2018 6:40pm Atypical p-ANCA <1:20 titer Neg:<1:20 03/31/2018 5:am 04/04/2018 6: 40pm The atypical pANCA pattern has been observed in a significant percentage of patients with ulcerative colitis, primary sclerosing cholangitis and autoimmune hepatitis. Performed at: [facility] [id number] [employer] Member: David Cramer MD, Phone: [phone] Anti-Proteinase 3 (c-ANCA) <3.5 U/mL 0.0-3.5 03/30/2018 5:20am 2017 5:42am Performed at: [facility] [id number] [employer] Member: David Cramer MD, Phone: [phone] Myeloperoxidase Antibody <9.0 U/mL 0.0-9.0 03/30/2018 5:20am 2017 5:42am Anti-Nuclear Antibody (LAB) Negative Negative 03/31/2018 5:04/06 6:53am Anti-Nuclear Antibody Screen Negative . 03/31/2018 5:04/01/2018 12:17pm Negative <1:80 Borderline 1:80 Positive >1:80 Performed at: [facility] [id number] [employer] Member: Domingo Combs MD, Phone: [phone] SS-A/Ro Antibody <0.2 AI 0.0-0.9 03/31/2018 5:04/06/2018 6:53am SS-B/La Antibody <0.2 AI 0.0-0.9 03/31/2018 5:04/06/2018 6:53am Sm (Be) Antibody <0.2 AI 0.0-0.9 03/31/2018 5:04/06/2018 6: 53am SM Antibody 7 Units 0-19 03/31/2018 5:04/06/2018 6:53am Negative 0 - 19 Weak positive 20 - 30 Moderate to strong positive >30 Actin Antibodies are found in 52-85% of patients with autoimmune hepatitis or chronic active hepatitis and in 22% of patients with primary biliary cirrhosis. Anti-nRNP/Sm IgG Antibody <0.2 AI 0.0-0.9 03/31/2018 5:04/06/2018 6:53am Scl-70 (Scleroderma) Antibody <0.2 AI 0.0-0.9 03/31/2018 5:2017 6:53am Anti-Mitochondrial Antibody 6.2 Units 0.0-20.0 03/31/2018 5:2017 6:53am Negative 0.0 - 20.0 Equivocal 20.1 - 24.9 Positive >24.9 Mitochondrial (M2) Antibodies are found in 90-96% of patients with primary biliary cirrhosis. Anti-Double Strand DNA (Crithidia) <1 IU/mL 0-9 03/31/2018 5:04/06 6:53am Negative <5 Equivocal 5 - 9 Positive >9 Thyroid Peroxidase Antibodies 12 IU/mL 0-34 03/31/2018 5:2017 6:53am Performed at: [facility] [id number] [employer] Member: Domingo Combs MD, Phone: [phone] Performed at: [address] [id number] [employer] Member: David Cramer MD, Phone: [phone] Anti-Striated Muscle Antibody Negative Neg:<1:40 03/31/2018 5:19am 6:53am Anti-Parietal Cell Antibody 6.3 Units 0.0-20.0 03/31/2018 5:19am 2017 6:53am Negative 0.0 - 20.0 Equivocal 20.1 - 24.9 Positive >24.9 Parietal Cell Antibodies are found in 90% of patients with pernicious anemia and 30% of first degree relatives with pernicious anemia. Rheumatoid Factor 17.2 IU/mL H 0.0-13.9 03/31/2018 5:19am 04/01/2018 8: 26am Performed at: [facility] [address] [id number] [employer] Member: Domingo Combs MD, Phone: [phone] Complement C3 151 mg/dL 82-167 03/31/2018 5:19am 04/01/2018 8:26am Complement C4 27 mg/dL 14-44 03/31/2018 5:19am 04/06/2018 6:53am PTT Inhibitor 47.1 sec 0.0-51.9 03/31/2018 5:19am 04/04/2018 7:04am Lupus Anticoagulant Interpretation Comment: . 03/31/2018 5:19am 04/04 7:04am No lupus anticoagulant was detected. Performed at: [address] [id number] [employer] Member: David Cramer MD, Phone: [phone] White Blood Count 8.38 x10e3/uL 4.8-10.8 05/25/2018 5:55am 05/25/2018 5 :58am Red Blood Count 2.99 x10e6/uL L 4.3-5.7 05/25/2018 5:55am 05/25/2018 5: 58am Hemoglobin 9.4 g/dL L 14.0-18.0 05/25/2018 5:55am 05/25/2018 5:58am Hematocrit 27.7 % L 38.2-49.6 05/25/2018 5:55am 05/25/2018 5:58am Mean Corpuscular Volume 92.6 fL 81-99 05/25/2018 5:55am 05/25/2018 5: 58am Mean Corpuscular Hemoglobin 31.4 pg 28-32 05/25/2018 5:55am 05/25/2018 5:58am Mean Corpuscular Hemoglobin Concent 33.9 g/dL 31-35 05/25/2018 5:55am 05/25/2018 5:58am Red Cell Distribution Width 14.2 % 11.7-14.4 05/25/2018 5:55am 2017 5:58am Platelet Count 393 x10e3/uL H 140-360 05/25/2018 5:55am 05/25/2018 5: 58am Neutrophils (%) (Auto) 70.9 % 38.7-80.0 05/25/2018 5:55am 05/25/2018 5: 58am Lymphocytes (%) (Auto) 16.8 % L 18.0-39.1 05/25/2018 5:55am 05/25/2018 5 :58am Monocytes (%) (Auto) 6.7 % 4.4-11.3 05/25/2018 5:55am 05/25/2018 5: 58am Eosinophils (%) (Auto) 3.8 % 0.0-6.0 05/25/2018 5:55am 05/25/2018 5: 58am Basophils (%) (Auto) 0.6 % 0.0-1.0 05/25/2018 5:55am 05/25/2018 5:58am IM GRANULOCYTES % 1.2 % H 0.0-1.0 05/25/2018 5:55am 05/25/2018 5:58am Neutrophils # (Auto) 5.9 2.1-6.9 05/25/2018 5:55am 05/25/2018 5:58am Lymphocytes # (Auto) 1.4 1.0-3.2 05/25/2018 5:55am 05/25/2018 5:58am Monocytes # (Auto) 0.6 0.2-0.8 05/25/2018 5:55am 05/25/2018 5:58am Eosinophils # (Auto) 0.3 0.0-0.4 05/25/2018 5:55am 05/25/2018 5:58am Basophils # (Auto) 0.1 0.0-0.1 05/25/2018 5:55am 05/25/2018 5:58am Absolute Immature Granulocyte (auto 0.10 x10e3/uL 0-0.1 05/25/2018 5: 55am 05/25/2018 5:58am Differential Total Cells Counted 100 05/16/2018 4:05am 05/16/2018 7 :32am Neutrophils % (Manual) 89 % H 40-74 05/16/2018 4:05am 05/16/2018 7:32am Band Neutrophils % 1 % 05/16/2018 4:05am 05/16/2018 7:32am Lymphocytes % (Manual) 6 % L 19-48 05/16/2018 4:05am 05/16/2018 7:32am Monocytes % (Manual) 3 % L 3.4-9.0 05/16/2018 4:05am 05/16/2018 7:32am Reactive Lymphocytes 1 05/16/2018 4:05am 05/16/2018 7:32am Platelet Estimate ADEQUATE 05/16/2018 4:05am 05/16/2018 7:32am Platelet Morphology Comment NORMAL 05/16/2018 4:05am 05/16/2018 7: 32am Hypochromasia SLIGHT 05/16/2018 4:05am 05/16/2018 7:32am Anisocytosis SLIGHT 05/16/2018 4:05am 05/16/2018 7:32am Red Cell Morphology Comment NORMAL 05/16/2018 4:05am 05/16/2018 7: 32am Sodium Level 139 mmol/L 136-145 05/25/2018 5:55am 05/25/2018 6:23am Potassium Level 3.9 mmol/L 3.5-5.1 05/25/2018 5:55am 05/25/2018 6:23am Chloride Level 108 mmol/L H 98-107 05/25/2018 5:55am 05/25/2018 6:23am Carbon Dioxide Level 22 mmol/L 22-29 05/25/2018 5:55am 05/25/2018 6: 23am Anion Gap 12.9 mmol/L 8-16 05/25/2018 5:55am 05/25/2018 6:23am Blood Urea Nitrogen 14 mg/dL 7-26 05/25/2018 5:55am 05/25/2018 6:23am Creatinine 0.77 mg/dL 0.72-1.25 05/25/2018 5:55am 05/25/2018 6:23am BUN/Creatinine Ratio 18 6-25 05/25/2018 5:55am 05/25/2018 6:23am Estimat Glomerular Filtration Rate > 60 ML/MIN 60- 05/25/2018 5:55am 6:23am Ranges were taken from the National Kidney Disease Education Program and the National Kidney Foundation literature. Reference ranges: 60 or greater: Normal 16-59 (for 3 consecutive months): Chronic kidney disease 15 or less: Kidney failure Glucose Level 98 mg/dL 74-118 05/25/2018 5:55am 05/25/2018 6:23am Calcium Level 8.5 mg/dL 8.4-10.2 05/25/2018 5:55am 05/25/2018 6:23am Magnesium Level 1.5 MG/DL 1.3-2.1 05/23/2018 4:20am 05/23/2018 5:11am Total Bilirubin 0.5 mg/dL 0.2-1.2 05/25/2018 5:55am 05/25/2018 6:23am Aspartate Amino Transf (AST/SGOT) 39 IU/L H 5-34 05/25/2018 5:55am 05/25 6:23am Alanine Aminotransferase (ALT/SGPT) 30 IU/L 0-55 05/25/2018 5:55am 11/2017 6:23am Total Protein 5.2 g/dL L 6.5-8.1 05/25/2018 5:55am 05/25/2018 6:23am Albumin 2.0 g/dL L 3.5-5.0 05/25/2018 5:55am 05/25/2018 6:23am Globulin 3.2 g/dL 2.3-3.5 05/25/2018 5:55am 05/25/2018 6:23am Albumin/Globulin Ratio 0.6 L 0.8-2.0 05/25/2018 5:55am 05/25/2018 6: 23am Alkaline Phosphatase 64 IU/L 40-150 05/25/2018 5:55am 05/25/2018 6: 23am B-Type Natriuretic Peptide 81.6 pg/mL 0-100 05/24/2018 4:10am 2017 5:12am Microbiology Results Procedure Source Organism/Result Collection Date/Time Result Date/Time Result Status Urine Culture Urine,Clean Catch KLEBSIELLA PNEUMONIAE 03/22/2018 10:05am 03/25/2018 8:30am Final MORGANELLA MORGANII 03/22/2018 10:05am 03/25/2018 8:30am Final Procedures Procedure Status Date Provider(s) Transurethral resection of bladder tumor (TURBT) with cystoscopy Completed PADMINI,MAGDA POSADAS Cystoscopy with retrograde pyelography Completed 03/31/18 PADMINI,MAGDA POSADAS Cystectomy Completed 05/15/18 PADMINI,MAGDA POSADAS Dissection of lymph nodes of pelvis Completed 05/15/18 MAGDA WASHINGTON MD X-ray of chest, single view Active 03/28/18 ALYSSIA HANCOCK MD Ultrasound, renal Active 03/30/[address] of abdomen and pelvis without contrast Active 03/31/18 MAGDA WASHINGTON MD Encounters Encounter Location Arrival/Admit Date Discharge/Depart Date Attending Provider Discharged Inpatient [facility] 05/15/18 6:39pm 05/25/18 6:59pm FLORY FELIPE MD Registered Surgical Day Care [facility] 05/08/18 6:30am DESI CALDERA DO Discharged Inpatient [facility] 03/28/18 3:08pm 04/03/18 6:09pm MICHELE YU MD Departed Emergency Room [facility] 03/22/18 9:54am 1:00pm DEANNA MONTES DE OCA MD
== END | disposition home or self-care (01) ==
LOC: CATH LAB 09:37 → EDSTATUS 12:00
PROVIDERS: ATTEND Urology
DX: C67.9 Malignant neoplasm of bladder, unspecified (principal); Z43.6 Encounter for attention to other artificial openings of urinary tract; N13.30 Unspecified hydronephrosis; Z90.6 Acquired absence of other parts of urinary tract
CPT/HCPCS: 50384; 74425; C1769; 77001; J2250

== ENCOUNTER 2019-09-26 18:15 | Inpatient (IN) | payer MEDICARE ==
[~2019-09-26] VITALS: Ht 185.4 cm; Wt 77.1 kg
[~2019-09-26 18:15] MED LIST changes: -FENTANYL CITRATE/PF 100MCG/2 ML INJ ONE; -MIDAZOLAM HCL 2 MG/2 ML VIAL ONE
--- NOTE | 2019-09-26 19:10 | NUR ---
Direct admission came from 's office with c/o swelling in legs and arms.assessment done.no resp.distress.no pain voiced.notified to covering for .son with pt.Casting Machine Control Board Operator accessed the right port o cath as per physicians order.call placed to .Implemented the orders.oriented to the unit.bed locked and in lowest position.phone and call light within reach.instructed to call for assistance as needed.
[2019-09-26 19:50] VITALS: BP 171/79
[2019-09-26 20:08] VITALS: BP 171/79
[2019-09-26 20:15] VITALS: BP 171/79
[2019-09-26 20:16] LABS: BASOPHILS # (AUTO) 0.1 (0.0-0.1); BASOPHILS % 0.7 % (0.0-1.0); EOSINOPHILS # (AUTO) 0.3 (0.0-0.4); EOSINOPHILS % 4.3 % (0.0-6.0); HEMATOCRIT 33.6 % (38.2-49.6); HEMOGLOBIN 10.8 g/dL (14.0-18.0); LYMPHOCYTES # (AUTO) 0.8 (1.0-3.2); LYMPHOCYTES % 11.3 % (18.0-39.1); MEAN CORPUSCULAR HEMOGLOBIN 34.6 pg (28-32); MEAN CORPUSCULAR HGB CONC 32.1 g/dL (31-35); MEAN CORPUSCULAR VOLUME 107.7 fL (81-99); MONOCYTES # (AUTO) 1.9 (0.2-0.8); MONOCYTES % 26.3 % (4.4-11.3); NEUTROPHILS # (AUTO) 4.1 (2.1-6.9); PLATELET COUNT 152 x10e3/uL (140-360); RED BLOOD COUNT 3.12 x10e6/uL (4.3-5.7); RED CELL DISTRIBUTION WIDTH 18.7 % (11.7-14.4)
[2019-09-26 20:26] LABS: INR 1.12; PROTHROMBIN TIME 14.9 seconds (11.9-14.5)
[2019-09-26 20:33] LABS: ALBUMIN 2.4 g/dL (3.5-5.0); ANION GAP 11.5 mmol/L (8-16); CALCIUM 8.7 mg/dL (8.4-10.2); CREATININE, SERUM 1.16 mg/dL (0.72-1.25); POTASSIUM 4.5 mmol/L (3.5-5.1)
--- NOTE | 2019-09-26 20:37 | Diagnostic Imaging Report ---
EXAMINATION: CHEST SINGLE (PORTABLE) COMPARISON: Chest x-ray 05/24/2018 INDICATION: ^CHF UPRIGHT POSITION ^[id number] ^2024 DISCUSSION: Frontal view of the chest obtained at 2 hours. HEART AND MEDIASTINUM: The heart is enlarged. The aorta is tortuous. LINES: MediPort catheter terminates in the SVC LUNGS: Diffuse pulmonary vascular congestion and widespread alveolar infiltrates. The lungs are hyperinflated at baseline consistent with COPD. PLEURA: Bilateral pleural effusions, moderate on the left and small on the right. No pneumothorax. BONES AND SOFT TISSUES: No focal osseous lesion. The soft tissues are normal. IMPRESSION: Cardiomegaly, pulmonary vascular congestion and alveolar edema. Bilateral pleural effusions, left larger than right. Signed by: Dr. Emily Bauman MD on 09/26/2019 8:34 PM
[2019-09-26] MEDS: FUROSEMIDE INJ 10 MG/ML 4 ML VIAL IV SCH (21:22)
[2019-09-26] MEDS ORDERED: LORAZEPAM 0.5 MG TAB PO ONE (23:45)
[2019-09-27] VITALS (7 sets, daily range): BP systolic 137–167; BP diastolic 65–91
--- NOTE | 2019-09-27 00:24 | NUR ---
Repositioned.bed bath given.resting in the bed.npo advised.
--- NOTE | 2019-09-27 06:04 | NUR ---
Patient signed the consent.on npo.IR consultation to be done.
--- NOTE | 2019-09-27 07:01 | NUR ---
Bed side shift report given to the oncoming Rn.stable condition.
[2019-09-27] MEDS: FUROSEMIDE INJ 10 MG/ML 4 ML VIAL IV SCH ×2 (08:17→21:15)
[2019-09-27] MEDS: MAGNESIUM OXIDE 400 MG TAB PO SCH ×2 (08:17→16:11)
[2019-09-27] MEDS: OYST-CAL-D 500MG TABLET PO SCH (08:17)
[2019-09-27] MEDS: OMEGA 3 POLYUNSAT FATTY ACIDS 1000 MG SOFTGEL PO SCH (08:17)
[2019-09-27] MEDS: LORAZEPAM 0.5 MG TAB PO SCH ×2 (08:17→16:11)
[2019-09-27] MEDS ORDERED: OYST-CAL-D 500MG TABLET PO SCH (09:00)
--- NOTE | 2019-09-27 10:02 | History and Physical ---
CHIEF COMPLAINT: "I do not feel well." HISTORY OF PRESENT ILLNESS: This is an 88-year-old white man, who was admitted directly from his interrelated special education teacher's office because of acute on chronic heart failure resulting in bilateral pleural effusions as well as acute lower extremity deep venous thrombosis. The interrelated special education teacher states the plan is to perform a left-sided thoracentesis as well as an elective placement of inferior vena cava filter since this gentleman cannot tolerate anticoagulation and has acute right lower extremity deep venous thrombosis. The patient states he does not feel well. The patient states he has felt weak and slightly short of breath for the last week. The patient denies any fever or chills. On admission, the patient's B-type natriuretic peptide level was slightly elevated at 137. BUN and creatinine are 20 and 1.16 respectively. Sodium is 135. The patient's albumin is 2.4. The patient's white blood cell count 7200 with 56% segmented neutrophils. Hemoglobin 10.8 g/dL. Chest x-ray done on admission reveals cardiomegaly with pulmonary vascular congestion and alveolar edema. It also revealed bilateral pleural effusions, left greater than right. REVIEW OF SYSTEMS: GENERAL: The patient has lost 40 pounds in one year according to the previous hospitalization at this hospital. No fever or chills, but he has had generalized weakness in the last seven days. HEENT: No headaches. No vision changes. CARDIOVASCULAR/RESPIRATORY: No chest pain, short of breath, or cough, but he states he fatigues easily and has dyspnea on exertion with minimal activity. GI: No nausea, vomiting, or constipation. : The patient has a bilateral ureteroileal conduit. NEUROMUSCULAR: No limb weakness or numbness, but complains generalized weakness. PAST MEDICAL HISTORY: 1. 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 2. Stage II chronic kidney disease. 3. Chronic atrial fibrillation. 4. Anemia secondary to chronic disease. 5. Hypertensive heart disease. 6. Chronic diastolic congestive heart failure. SURGICAL HISTORY: 1. 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 2. Radical cystoprostatectomy with lymph node dissection and ileal conduit placement in April 2018. 3. Bladder cancer resection several years ago. SOCIAL HISTORY: This man is , but his lives in a usp. The patient has no history of alcohol or tobacco use. He has an adult daughter, who is involved in his health care needs. FAMILY HISTORY: Noncontributory. ALLERGIES: NO KNOWN DRUG ALLERGIES. HOME MEDICATIONS: 1. Calcium carbonate 500 mg b.i.d. 2. Metoprolol succinate 25 mg daily. 3. Pantoprazole 40 mg daily. 4. Temazepam 15 mg at bedtime p.r.n. insomnia. 5. Multivitamin once daily. 6. [place]-3 fish oil once daily. 7. Atorvastatin 10 mg at bedtime. PHYSICAL EXAMINATION: GENERAL: He is awake, semi-alert. He is slow to answer questions. He does not appear to be in any obvious distress, but he does appear to be chronically ill. VITAL SIGNS: Blood pressure 160/80, pulse is 100, respiratory rate is 24, and oxygen saturation 97% on room air, temperature 97.4, height 6 feet 2 inches, weight 170 pounds (weight was 210 pounds in May 2018), BMI 22. INTEGUMENT: Skin is warm and dry. No pallor, jaundice, or diaphoresis. HEENT: Anicteric sclerae. Moist mucous membranes. NECK: Supple. CARDIOVASCULAR: Distant heart sounds. Regular rate and rhythm and S3 gallop. LUNGS: Decreased breath sounds at the bases. ABDOMEN: Benign. The patient has a urostomy bag in place. EXTREMITIES: No edema in legs. NEUROLOGIC: Intact. No gross deficits appreciated. DIAGNOSES: 1. Acute on chronic diastolic heart failure. 2. Bilateral pleural effusions (left greater than right). 3. Acute right lower extremity deep venous thrombosis. 4. Chronic atrial fibrillation. 5. Physical debility. 6. Anemia secondary to chronic disease. PLAN: 1. We will proceed with left-sided thoracentesis as recommended by Cardiology. 2. We will place an inferior vena cava filter today since the patient has lower extremity deep venous thrombosis and he cannot tolerate anticoagulation. 3. We will consult Cardiology. 4. This patient may be a candidate for palliative care. I spent an hour in the care of this patient. MD JAMIE Becker/NADEEM /[id number] DON
--- NOTE | 2019-09-27 12:04 | Diagnostic Imaging Report ---
Chest, portable AP view History: Status post left thoracentesis Comparison: 09/26/2019 IMPRESSION: There is no postprocedural pneumothorax. A trace residual left pleural effusion is present. There is a trace right pleural effusion. The heart is stable in size. Right IJ chest port is in place with distal catheter tip terminating at the cavoatrial junction. Signed by: Edi Berger MD on 09/27/2019 12:00 PM
--- NOTE | 2019-09-27 12:06 | Diagnostic Imaging Report ---
Ultrasound guided left thoracentesis, 09/27/2019. Clinical History: Left pleural effusion. Modality: Ultrasound. Sedation: None. Heel Cover Softener: Edi Berger MD. Television Station Manager: None. Estimated Blood Loss: 1cc Specimen: 1200 cc of elton fluid. Technique: Informed consent was obtained. The risks of pain, bleeding, infection, lung collapse/pneumothorax, injury to adjacent structures, and adverse medication reactions were discussed with the patient. The patient's left hemithorax was scanned from the mid axillary line, with the patient a recumbent position. After the largest fluid pocket area was marked, the skin was prepped and draped in the usual sterile manner. The area was anesthetized with 1% lidocaine, a 5 F one-step catheter was advanced into the pleural space under ultrasound guidance. After completion of drainage, the catheter was removed. There was no evidence of immediate complication. Post procedure chest radiograph demonstrates no evidence of pneumothorax. Patient disposition: Patient was discharged from the ultrasound department after the thoracentesis in good condition. Impression: Successful and uncomplicated ultrasound guided left thoracentesis. Signed by: Edi Berger MD on 09/27/2019 12:02 PM
[2019-09-27 12:14] LABS: BODY FLUID APPEARANCE CLOUDY; BODY FLUID COLOR STRAW; BODY FLUID TYPE Thoracentesis
[2019-09-27 12:15] LABS: RBC,BODY FLUID 3921 cells/uL; WBC,BODY FLUID 597 cells/uL
[2019-09-27 12:57] LABS: LYMPHOCYTES,BODY FLUID 49 %; MONO/MACROPHG,BODY FLUID 31 %; NEUTROPHILS,BODY FLUID 8 %; OTHER CELLS,BODY FLUID 12 %
[2019-09-27] MEDS ORDERED: ATORVASTATIN 10 MG TAB PO SCH (21:00)
[2019-09-28] VITALS: BP 144/74
--- NOTE | 2019-09-28 01:47 | Consultation ---
DATE OF CONSULTATION: Cardiology Consultation. HISTORY OF PRESENT ILLNESS: This is an 88-year-old man with a history of bladder cancer with ureteral conduit, chronic kidney disease, atrial fibrillation, anemia of chronic disease, chronic diastolic heart failure, who presented to our outside facility was found to have deep venous thrombosis. The patient cannot tolerate anticoagulation. The patient was also noted to have a pleural effusion for which he underwent thoracentesis today. He has no other active cardiac symptoms currently. REVIEW OF SYSTEMS: A 12-point review of system was conducted, is negative except as stated above in the HPI. PAST MEDICAL HISTORY: As stated above in the HPI. PAST SURGICAL HISTORY: Cholecystectomy, bladder cancer resection, and prostatectomy. SOCIAL HISTORY: No illicit drug use, alcohol, tobacco use. ALLERGIES: NO KNOWN DRUG ALLERGIES. FAMILY HISTORY: Noncontributory. MEDICATIONS: See medications reconciliation form. PHYSICAL EXAMINATION: VITAL SIGNS: Afebrile. Heart rate is 81, respirations are 20, blood pressure is 142/91 ox saturation 99% on room air. GENERAL: He is a chronically ill-appearing elderly man, lying comfortably in bed, in no apparent distress. HEENT: Head is normocephalic, atraumatic. Eyes, the extraocular muscles are intact. Conjunctivae are clear. NECK: No JVD. No bruits. CARDIOVASCULAR: Regular rate and rhythm. LUNGS: Clear to auscultation anteriorly. Diminished breath sounds at bases. ABDOMEN: Soft, nontender, nondistended. EXTREMITIES: Trace edema. LABORATORY DATA: Reviewed. Hemoglobin is 10.8. Creatinine is 1.16. IMPRESSION: 1. Deep venous thrombosis. 2. Pleural effusions. 3. Acute on chronic diastolic heart failure. 4. Atrial fibrillation. 5. Chronic debilitation. 6. Anemia. RECOMMENDATIONS: The patient will undergo IVC filter placement since he cannot tolerate anticoagulation. He has underwent thoracentesis. Continue current cardiovascular medications including Lasix for adequate diuresis. Amol Kim DO BM/MODL /[id number]
--- NOTE | 2019-09-28 02:10 | NUR ---
Repositioned.right port o cath is patent.bed locked and in lowest position.phone and call light within reach.instructed to call for assistance as needed.
[2019-09-28 04:00] VITALS: BP 132/74
[2019-09-28 05:46] LABS: BASOPHILS % 0.5 % (0.0-1.0); EOSINOPHILS # (AUTO) 0.3 (0.0-0.4); EOSINOPHILS % 3.7 % (0.0-6.0); HEMATOCRIT 34.2 % (38.2-49.6); HEMOGLOBIN 11.1 g/dL (14.0-18.0); LYMPHOCYTES # (AUTO) 0.7 (1.0-3.2); LYMPHOCYTES % 8.4 % (18.0-39.1); MEAN CORPUSCULAR HEMOGLOBIN 34.2 pg (28-32); MEAN CORPUSCULAR HGB CONC 32.5 g/dL (31-35); MEAN CORPUSCULAR VOLUME 105.2 fL (81-99); MONOCYTES # (AUTO) 2.1 (0.2-0.8); MONOCYTES % 25.4 % (4.4-11.3); PLATELET COUNT 195 x10e3/uL (140-360); RED BLOOD COUNT 3.25 x10e6/uL (4.3-5.7); RED CELL DISTRIBUTION WIDTH 18.2 % (11.7-14.4)
[2019-09-28 06:08] LABS: ALBUMIN 2.4 g/dL (3.5-5.0); ANION GAP 14.6 mmol/L (8-16); CALCIUM 8.3 mg/dL (8.4-10.2); CREATININE, SERUM 1.16 mg/dL (0.72-1.25); POTASSIUM 3.6 mmol/L (3.5-5.1)
--- NOTE | 2019-09-28 07:00 | NUR ---
Bed side shift report given to the oncoming Rn.stable condition.
[2019-09-28] MEDS ORDERED: FENTANYL CITRATE/PF 100MCG/2 ML INJ ONE (07:21)
[2019-09-28] MEDS ORDERED: MIDAZOLAM HCL 2 MG/2 ML VIAL ONE (07:21)
[2019-09-28] MEDS ORDERED: LIDOCAINE HCL 2% LOCAL 20 ML VIAL ONE (07:21)
[2019-09-28] MEDS ORDERED: IOPAMIDOL 300MG/ML 50ML INFUS..BTL IV ONE (07:22)
[2019-09-28] MEDS ORDERED: HEPARIN SOD/SOD CHLORIDE 1,000 ML ONE (07:22)
[2019-09-28] MEDS ORDERED: SODIUM CHLORIDE 0.9% 1000ML 1,000 ML ONE (07:27)
[2019-09-28 08:00] LABS: EOSINOPHILS % (MANUAL) 2 % (0-7); LYMPHOCYTES % (MANUAL) 10 % (19-48); MONOCYTES % (MANUAL) 20 % (3.4-9.0); NEUTROPHILS % (MANUAL) 67 % (40-74)
[2019-09-28 08:01] LABS: ANISOCYTOSIS SLIGHT; OVALOCYTES FEW; POIKILOCYTOSIS SLIGHT; POLYCHROMASIA FEW
[2019-09-28 08:02] LABS: PLATELET ESTIMATE ADEQUATE; RBC MORPHOLOGY COMMENT ABNORMAL
[2019-09-28 08:03] LABS: PLATELET MORPHOLOGY COMMENT NORMAL
--- NOTE | 2019-09-28 08:12 | Diagnostic Imaging Report ---
Chest, portable AP view History: CHF Comparison: 09/27/2019 IMPRESSION: The cardiac silhouette is identified by portable technique. Right IJ chest port is in place distal catheter tip terminating at the cavoatrial junction. Trace bilateral pleural effusions are present. Mild interstitial edema. No focal consolidation or pneumothorax. Signed by: Edi Berger MD on 09/28/2019 8:08 AM
[2019-09-28 08:13] VITALS: BP 153/80
[2019-09-28] MEDS: OMEGA 3 POLYUNSAT FATTY ACIDS 1000 MG SOFTGEL PO SCH (09:00)
[2019-09-28] MEDS: OYST-CAL-D 500MG TABLET PO SCH (09:00)
--- NOTE | 2019-09-28 10:05 | Discharge Summary ---
ADMITTING DIAGNOSES: 1. Acute right lower extremity deep venous thrombosis. 2. Acute on chronic diastolic congestive heart failure. 3. Bilateral pleural effusions, left greater than right. 4. Chronic atrial fibrillation. 5. Chronic debility. 6. Anemia secondary to chronic disease. DISCHARGE DIAGNOSES: 1. Status post inferior vena cava filter placement. 2. Status post left-sided thoracentesis. 3. Acute right lower extremity deep venous thrombosis. 4. History of bladder cancer with urostomy placement. 5. Chronic atrial fibrillation. 6. Physical debility. 7. Anemia secondary to chronic disease. 8. Chronic diastolic congestive heart failure. HOSPITAL COURSE: This is an 88-year-old white man, who has known history of invasive bladder cancer, who in April of 2018, underwent a radical cystoprostatectomy with lymph node resection and ileal conduit placement. Thus, the patient has urostomy in place. The patient also has history of diastolic heart failure and overall physical debility. The patient is admitted with a diagnosis of acute on chronic diastolic heart failure during this hospitalization. He was found to have bilateral pleural effusions, left greater than right. During this hospital stay, the patient underwent left-sided ultrasound-guided thoracentesis that was performed by Interventional Radiology. A 1200 mL of elton fluid was removed. On discharge, the blood culture was still pending, but the Gram stain revealed moderate white cells with no organisms. Also, during this hospitalization, the patient was seen by his Director Specialty, namely Dr. Oscar Alberto because of his acute right lower extremity deep venous thrombosis. Due to this patient's underlying malignancy, it is absolutely contraindicated for him to receive anticoagulation. Thus, during this hospitalization, Dr. Oscar Alberto successfully placed an inferior vena cava filter. The patient tolerated this procedure well. On day of discharge, white blood cell count was 8000 with 67% segmented neutrophils. His hemoglobin on discharge is 11.1 g/dL. The patient underwent a chest x-ray on discharge that revealed trace bilateral pleural effusions with mild interstitial edema. No focal consolidation or pneumothorax is appreciated. CONDITION ON DISCHARGE: Stable. DISCHARGE MEDICATIONS: 1. Calcium carbonate 500 mg b.i.d. 2. Metoprolol succinate 25 mg daily. 3. Pantoprazole 40 mg daily. 4. Temazepam 15 mg at bedtime p.r.n. insomnia. 5. Multivitamin once daily. 6. [place]-3 fish oil once daily. 7. Atorvastatin 10 mg at bedtime. FOLLOWUP: The patient is instructed to follow up with Dr. Alberto within [address] Julio Kim within two weeks. MD JAMIE Becker/NADEEM /[id number] cc: DO Oscar Zhu MD
[2019-09-28] MEDS: LORAZEPAM 0.5 MG TAB PO SCH (10:44)
[2019-09-28] MEDS: FUROSEMIDE INJ 10 MG/ML 4 ML VIAL IV SCH (10:44)
[2019-09-28] MEDS: MAGNESIUM OXIDE 400 MG TAB PO SCH (10:44)
--- NOTE | 2019-09-28 10:55 | Progress Note ---
DATE: 09/28/2019 Cardiology Progress Note SUBJECTIVE: Mr. Chowdary remains weak. He has had no bleeding. He has underwent IVC filter placement today. PHYSICAL EXAMINATION: VITAL SIGNS: Afebrile, heart rate 90, blood pressure 149/72, O2 saturation is 98%. CARDIOVASCULAR: Irregularly irregular rhythm, systolic murmur. LUNGS: Clear to auscultation bilaterally. ABDOMEN: Mildly distended. EXTREMITIES: 4+ edema bilaterally, worse on the right leg. TELEMETRY: Shows atrial fibrillation. ASSESSMENT: 1. Acute deep vein thrombosis in the right leg with inability to anticoagulate due to urinary tract cancer. 2. Atrial fibrillation. 3. Chronic systolic heart failure. RECOMMENDATIONS: IVC filter placement has been done. His pleural effusions are vastly improved. Heart failure exacerbation is improving. From the cardiac standpoint, he may be discharged on an aspirin daily with close followup in the office. I thank, Dr. Morales, for this consultation. MD ANDREAS Salomon/NADEEM /[id number]
[2019-09-28 11:13] VITALS: BP 153/80
[2019-09-28 12:00] VITALS: BP 150/88
--- NOTE | 2019-09-28 14:44 | NUR ---
IMM explained to patient, patient signed, copy to patient, copy to chart
--- NOTE | 2019-09-28 14:58 | Operative Report ---
DATE OF PROCEDURE: 09/28/2019 SURGEON: Oscar Alberto MD INDICATIONS: DVT, unable to anticoagulate. PROCEDURES PERFORMED: 1. IVC filter placement. 2. Venogram of the inferior vena cava. COMPLICATIONS: None. BLOOD LOSS: None. DESCRIPTION OF PROCEDURE: Access obtained in the right femoral vein. An 8-[place] sheath was placed. Venogram was performed. No thrombus. Normal size IVC. Renal veins were identified. Infrarenal [place] IVC filter was deployed. No complications. Sheath discontinued under manual pressure. The patient transferred to the floor in stable condition. Oscar Alberto MD [facility]/MODL /[id number]
--- NOTE | 2019-09-28 15:26 | NUR ---
Called Dr. Morales's answering service regarding an order to pack patient's katelyn-cath prior to removing the Dooley IV access.
--- NOTE | 2019-09-28 15:52 | NUR ---
Called Dr. Morales's answering service regarding heparin order for part-a-cath, 2nd call.
[2019-09-28 16:00] VITALS: BP 119/61
== END 2019-09-28 17:28 | disposition home or self-care (01) | DRG 252 ==
LOC: MED/SURG 18:15
PROVIDERS: ADMIT Internal Medicine; ATTEND Internal Medicine
PROC: 0W9B3ZZ Drainage of Left Pleural Cavity, Percutaneous Approach (ICD-10-PCS; 2019-09-27)
PROC: 06H03DZ Insertion of Intraluminal Device into Inferior Vena Cava, Percutaneous Approach (ICD-10-PCS; principal; 2019-09-28)
DX: I13.0 Hypertensive heart and chronic kidney disease with heart failure and stage 1 through stage 4 chronic kidney disease, or unspecified chronic kidney disease (principal); I50.33 Acute on chronic diastolic (congestive) heart failure; I82.4Z1 Acute embolism and thrombosis of unspecified deep veins of right distal lower extremity; I48.20 Chronic atrial fibrillation, unspecified; N18.2 Chronic kidney disease, stage 2 (mild); R53.81 Other malaise; D63.8 Anemia in other chronic diseases classified elsewhere; Z85.51 Personal history of malignant neoplasm of bladder; Z96.0 Presence of urogenital implants
CPT/HCPCS: 32555; 36415; 37191; 71045; 74470; 75825; 80053; 83880; 85025; 85610; 85730; 87070; 87205; 89051; 93005; 99152; C1769; J1642; J1940; J2001; J2250; J3010; J7030